=== PATIENT | male | born 1975 | race Caucasian/White ===

== ENCOUNTER → 2020-04-15 11:03 | Outpatient (BNVA) | payer OTHER, SELFPAY | PROVIDERS: PCP Nurse Practitioner Family; Visit Provider Nurse Practitioner Family ==

== ENCOUNTER → 2020-04-21 12:36 | Outpatient (REF) | payer OTHER, SELFPAY | LOC: HO.SL 12:36 | PROVIDERS: Visit Provider Nurse Practitioner Family | DX: G47.9 Sleep disorder, unspecified (principal); R06.83 Snoring | CPT/HCPCS: 95806 ==

== ENCOUNTER → 2020-05-26 19:27 | Outpatient (REF) | payer OTHER, SELFPAY | LOC: HO.SL 19:27 | PROVIDERS: PCP Nurse Practitioner Family; Visit Provider Nurse Practitioner Family | DX: G47.33 Obstructive sleep apnea (adult) (pediatric) (principal); Z99.89 Dependence on other enabling machines and devices | CPT/HCPCS: 95811 ==

== ENCOUNTER → 2020-07-29 08:28 | Outpatient (BNVA) | payer OTHER, SELFPAY | PROVIDERS: PCP Nurse Practitioner Family; Visit Provider Nurse Practitioner Family | DX: G47.33 Obstructive sleep apnea (adult) (pediatric) (principal) | CPT/HCPCS: 99212 ==

== ENCOUNTER 2020-08-28 15:08 | Outpatient (REF) | payer OTHER, SELFPAY ==
--- NOTE | ~2020-08-28 | MR_ITS ---
EXAMINATION: MR KNEE WITHOUT CONTRAST, RIGHT CLINICAL INFORMATION: Right knee pain. COMPARISON: None. TECHNIQUE: MRI of the knee without contrast was performed using routine sequences on a high-field scanner. FINDINGS: MENISCI: Medial Meniscus: Intact. Lateral Meniscus: Intact. LIGAMENTS: Cruciate: Intact. Collateral: Intact. EXTENSOR MECHANISM: Intact. ARTICULAR CARTILAGE/BONE: Patellofemoral Compartment: There is focal cartilage heterogeneity and subchondral cystic change in median ridge of the distal patella. The trochlear cartilage is normal. Overall minimal patellofemoral arthrosis. Medial Compartment: Normal. Lateral Compartment: Normal. JOINT FLUID AND BURSAE: Normal. MR/MR knee RT wo con IMPRESSION: Minimal patellofemoral arthrosis.
== END 2020-08-28 15:09 | disposition home or self-care (01) ==
LOC: HO.MRI 15:08
PROVIDERS: PCP Nurse Practitioner Family; Visit Provider Nurse Practitioner Family
DX: M25.561 Pain in right knee (principal); M25.461 Effusion, right knee
CPT/HCPCS: 73721

== ENCOUNTER → 2020-11-11 09:08 | Outpatient (REF) | payer OTHER, SELFPAY | LOC: HO.SL 09:08 | PROVIDERS: PCP Nurse Practitioner Family; Visit Provider Nurse Practitioner Family | DX: G47.33 Obstructive sleep apnea (adult) (pediatric) (principal) | CPT/HCPCS: 99211 ==

== ENCOUNTER 2021-01-17 13:33 | Outpatient (REF) | payer OTHER, SELFPAY ==
--- NOTE | ~2021-01-17 | XR_ITS ---
EXAMINATION: XR KNEE, RIGHT CLINICAL INFORMATION: Right knee pain COMPARISON: MRI of August 28, 2020 TECHNIQUE: Four views of the right knee. FINDINGS: There is no evidence of acute fracture or dislocation of the right knee. Right knee joint spaces are maintained. No right knee effusion. There is patella spurring the patellofemoral joint. XR/XR knee RT 4V IMPRESSION: Mild degenerative spurring at the patellofemoral joint.
== END 2021-01-17 13:34 | disposition home or self-care (01) ==
LOC: HO.HMGCX 13:33
PROVIDERS: PCP Nurse Practitioner Family; Visit Provider Physician Assistant Medical
DX: M25.561 Pain in right knee (principal)
CPT/HCPCS: 73564

== ENCOUNTER → 2021-02-19 14:22 | Outpatient (BNVA) | payer OTHER, SELFPAY | PROVIDERS: PCP Nurse Practitioner Family; Visit Provider Physician Assistant | DX: M17.11 Unilateral primary osteoarthritis, right knee (principal) | CPT/HCPCS: 99202 ==

== ENCOUNTER 2021-05-06 09:04 | Outpatient (REF) | payer OTHER, SELFPAY ==
--- NOTE | 2021-05-06 09:09 | EMG_ITS ---
This is a 45 year-old man with history of bilateral hand pain and numbness, right greater than left for many years, worse in the last 4 to 6 months. PHYSICAL EXAMINATION: He is alert and oriented with normal intellectual functions. Cranial nerves II through XII are normal. Muscle tone and strength are normal in all 4 extremities. Deep tendon reflexes symmetrical, 2+. Plantar responses are flexor. Gait and coordination normal. Neck is supple. IMPRESSION: Carpal tunnel syndrome. Nerve conduction EMG study: Moderately severe carpal tunnel syndrome on the right and moderate carpal tunnel syndrome on the left. Normal EMG of the right C5-T1 innervated muscles. MD PRESLEY Peng/JOHN / [id number]
== END 2021-05-06 09:05 | disposition home or self-care (01) ==
LOC: HO.NEURO 09:04
PROVIDERS: PCP Nurse Practitioner Family; Visit Provider Nurse Practitioner Family
DX: R20.2 Paresthesia of skin (principal); R20.0 Anesthesia of skin
CPT/HCPCS: 95885; 95913

== ENCOUNTER → 2021-06-03 11:22 | Outpatient (BNVA) | payer OTHER, SELFPAY | PROVIDERS: PCP Nurse Practitioner Family; Visit Provider Orthopaedic Surgery | DX: G56.03 Carpal tunnel syndrome, bilateral upper limbs (principal) | CPT/HCPCS: 99202 ==

== ENCOUNTER 2021-07-16 10:10 | Day surgery (SDC) | payer OTHER, SELFPAY ==
[2021-07-16 10:43] VITALS: BMI 36.6
[2021-07-16 10:48] VITALS: BP 160/98; PULSE 73; RESP 18; TEMP 36.8; O2SAT 96
--- NOTE | 2021-07-16 12:08 | MHC.SHP ---
Pre-Procedural Eval Section A Date of Service: 07/16/21 The patient is an INPATIENT: No Changes since office visit: No Cold of Flu in the past 2 weeks, No New Medical Problems, No Changes in Medication and No Patient answered all questions The History & Physical has been completed within 30 days and I have reviewed it.: Yes Section B Chief Complaint: Carpal tunnel syndrome, left upper limb Allergies: Allergies Allergy/AdvReac Type Severity Reaction Status Date / Time No Known Allergies Allergy Verified 06/03/21 11:46 Plan I have reviewed the history and physical and performed a pertinent physical examination on my patient. No changes have occurred unless specified.
--- NOTE | 2021-07-16 12:08 | W.PM.OPN ---
Operative Note Operative Note Date of Service: 07/16/21 Narrative: Preop diagnosis: 1. left Carpal tunnel syndrome Postop diagnosis: same Procedure: 1. left Carpal tunnel release Surgeon: Sudha Card MD Anesthesia: local block using 1% lidocaine with epinephrine Findings: Thickened transverse carpal ligament. EBL: Less than 5 mL Specimens: None Complications: None Disposition: Brought to recovery room in stable condition Plan: Follow-up for 10-14 days for wound check and suture removal Indications: The patient is 45 years old, with left carpal tunnel syndrome that has been unresponsive to nonoperative management. The risks and benefits of operative treatment including but not limited to risk of damage to blood vessels, nerves, tendons, infection, persistent pain, persistent symptoms, or possible need for additional surgery were discussed with the patient and the patient wishes to proceed with surgery. Procedure: Once consent was obtained a local block was performed using a combination of 1% lidocaine with epinephrine. The patient was then brought back to the operating suite and placed on the operative table in supine position. A tourniquet was applied to the proximal aspect of the left upper extremity and the limb was prepped and draped in a standard surgical fashion. Once assured that we had a good block, a 1.5 cm longitudinal incision was made centered over the carpal tunnel. The incision was made through the skin to the subcutaneous tissues using a #15 blade. Dissection was made down to the level of the transverse carpal ligament with care being taken to protect the palmar cutaneous nerve. Once the transverse carpal ligament was clearly visualized, a longitudinal incision was made in the transverse carpal ligament 1st using a #15 blade, then using tenotomy scissors under direct visualization. Care was taken to look for and protect the motor branch of the median nerve when seen in this area. Once satisfied with our carpal tunnel release the wound was copiously irrigated with normal saline and hemostasis was obtained with a brief period of local pressure. The skin edges were reapproximated with some 5.0 nylon suture material and a sterile dressing was applied. The patient appears to have tolerated the procedure well and with no complications. All digits were well vascularized at the conclusion of the case.
[2021-07-16 13:05] VITALS: BP 160/96; PULSE 71; RESP 16; TEMP 36.1; O2SAT 98
== END 2021-07-16 13:17 | disposition home or self-care (01) ==
PROVIDERS: PCP Nurse Practitioner Family; Visit Provider Orthopaedic Surgery
PROC: (CPT 64721; principal; 2021-07-16 12:40)
DX: G56.02 Carpal tunnel syndrome, left upper limb (principal); R20.0 Anesthesia of skin; I10 Essential (primary) hypertension; G47.33 Obstructive sleep apnea (adult) (pediatric); F32.A Depression, unspecified; Z79.899 Other long term (current) drug therapy; F17.210 Nicotine dependence, cigarettes, uncomplicated
CPT/HCPCS: 64721; J0171

== ENCOUNTER → 2021-07-29 12:38 | Outpatient (BNVA) | payer OTHER, SELFPAY | PROVIDERS: PCP Nurse Practitioner Family; Visit Provider Orthopaedic Surgery | DX: Z48.811 Encounter for surgical aftercare following surgery on the nervous system (principal); G56.01 Carpal tunnel syndrome, right upper limb | CPT/HCPCS: 99212 ==

== ENCOUNTER → 2021-08-12 13:01 | Outpatient (BNVA) | payer OTHER, SELFPAY | PROVIDERS: PCP Nurse Practitioner Family; Visit Provider Nurse Practitioner Family | DX: G47.33 Obstructive sleep apnea (adult) (pediatric) (principal); Z99.89 Dependence on other enabling machines and devices | CPT/HCPCS: 99212 ==

== ENCOUNTER 2021-09-10 10:51 | Day surgery (SDC) | payer OTHER, SELFPAY ==
--- NOTE | 2021-09-10 09:07 | W.PM.OPN ---
Operative Note Operative Note Date of Service: 09/10/21 Narrative: Preop diagnosis: 1. right Carpal tunnel syndrome Postop diagnosis: same Procedure: 1. right Carpal tunnel release Surgeon: Sudha Card MD Anesthesia: local block using 1% lidocaine with epinephrine Findings: Thickened transverse carpal ligament. EBL: Less than 5 mL Specimens: None Complications: None Disposition: Brought to recovery room in stable condition Plan: Follow-up for 10-14 days for wound check and suture removal Indications: The patient is 45 years old, with right carpal tunnel syndrome that has been unresponsive to nonoperative management. The risks and benefits of operative treatment including but not limited to risk of damage to blood vessels, nerves, tendons, infection, persistent pain, persistent symptoms, or possible need for additional surgery were discussed with the patient and the patient wishes to proceed with surgery. Procedure: Once consent was obtained a local block was performed using a combination of 1% lidocaine with epinephrine. The patient was then brought back to the operating suite and placed on the operative table in supine position. A tourniquet was applied to the proximal aspect of the right upper extremity and the limb was prepped and draped in a standard surgical fashion. Once assured that we had a good block, a 1.5 cm longitudinal incision was made centered over the carpal tunnel. The incision was made through the skin to the subcutaneous tissues using a #15 blade. Dissection was made down to the level of the transverse carpal ligament with care being taken to protect the palmar cutaneous nerve. Once the transverse carpal ligament was clearly visualized, a longitudinal incision was made in the transverse carpal ligament 1st using a #15 blade, then using tenotomy scissors under direct visualization. Care was taken to look for and protect the motor branch of the median nerve when seen in this area. Once satisfied with our carpal tunnel release the wound was copiously irrigated with normal saline and hemostasis was obtained with a brief period of local pressure. The skin edges were reapproximated with some 5.0 nylon suture material and a sterile dressing was applied. The patient appears to have tolerated the procedure well and with no complications. All digits were well vascularized at the conclusion of the case.
[2021-09-10 10:59] VITALS: BMI 36.2
[2021-09-10 11:18] VITALS: BP 169/99; PULSE 86; RESP 16; TEMP 36.6; O2SAT 97
[2021-09-10 12:59] VITALS: BP 147/77; PULSE 81; RESP 16; TEMP 36.9; O2SAT 96
--- NOTE | 2021-09-10 13:00 | MHC.SHP ---
Pre-Procedural Eval Section A Date of Service: 09/10/21 The patient is an INPATIENT: No Changes since office visit: No Cold of Flu in the past 2 weeks, No New Medical Problems, No Changes in Medication and No Patient answered all questions The History & Physical has been completed within 30 days and I have reviewed it.: Yes Section B Chief Complaint: CT Allergies: Allergies Allergy/AdvReac Type Severity Reaction Status Date / Time No Known Allergies Allergy Verified 08/12/21 13:08 Plan I have reviewed the history and physical and performed a pertinent physical examination on my patient. No changes have occurred unless specified.
== END 2021-09-10 13:15 | disposition home or self-care (01) ==
PROVIDERS: PCP Nurse Practitioner Family; Visit Provider Orthopaedic Surgery
PROC: (CPT 64721; principal; 2021-09-10 12:10)
DX: G56.01 Carpal tunnel syndrome, right upper limb (principal); I10 Essential (primary) hypertension; G47.30 Sleep apnea, unspecified; F17.200 Nicotine dependence, unspecified, uncomplicated
CPT/HCPCS: 64721; J0171

== ENCOUNTER → 2021-09-24 09:56 | Outpatient (BNVA) | payer OTHER, SELFPAY | PROVIDERS: PCP Nurse Practitioner Family; Visit Provider Physician Assistant | DX: G56.03 Carpal tunnel syndrome, bilateral upper limbs (principal) | CPT/HCPCS: 99212 ==

== ENCOUNTER 2021-10-12 13:20 | Outpatient (REF) | payer OTHER, SELFPAY ==
--- NOTE | ~2021-10-12 | XR_ITS ---
EXAMINATION: XR CERVICAL SPINE CLINICAL INFORMATION: Cervical disc disorder. COMPARISON: None TECHNIQUE: 4 views of the cervical spine were obtained. FINDINGS: No prevertebral soft tissue or bony abnormality is appreciated. No compression fractures or subluxations are identified. Alignment is maintained at the atlanto-axial articulation. The disc spaces appear preserved. No endplate changes are seen. The prevertebral soft tissues appear normal. XR/XR cervical spine 2V IMPRESSION: Unremarkable examination.
== END 2021-10-12 13:21 | disposition home or self-care (01) ==
LOC: HO.HMGCX 13:20
PROVIDERS: PCP Nurse Practitioner Family; Visit Provider Nurse Practitioner Family
DX: M50.90 Cervical disc disorder, unspecified, unspecified cervical region (principal)
CPT/HCPCS: 72040

== ENCOUNTER → 2021-10-14 10:43 | Outpatient (BNVA) | payer OTHER, SELFPAY | PROVIDERS: PCP Nurse Practitioner Family; Visit Provider Physician Assistant | DX: G56.03 Carpal tunnel syndrome, bilateral upper limbs (principal); M25.521 Pain in right elbow; M24.021 Loose body in right elbow | CPT/HCPCS: 99212 ==

== ENCOUNTER 2021-10-14 11:10 | Outpatient (REF) | payer OTHER, SELFPAY ==
--- NOTE | ~2021-10-14 | XR_ITS ---
EXAMINATION: XR ELBOW, RIGHT CLINICAL INFORMATION: Right elbow pain COMPARISON: None TECHNIQUE: AP, lateral, and oblique views of the right elbow. FINDINGS: There is no fracture or dislocation. Alignment is anatomic. Joint spaces are maintained. No elbow joint effusion. There is corticated ossification measuring 1 cm at the dorsal aspect of the elbow adjacent to the olecranon. This may represent an intra-articular body. XR/XR elbow RT min 3V IMPRESSION: Suspect an intra-articular body at the dorsal aspect of the elbow. This is adjacent to the olecranon. No acute abnormality.
== END 2021-10-14 11:11 | disposition home or self-care (01) ==
LOC: HO.HOSX 11:10
PROVIDERS: Visit Provider Physician Assistant
DX: M25.521 Pain in right elbow (principal); M24.021 Loose body in right elbow
CPT/HCPCS: 73080

== ENCOUNTER 2021-11-02 12:49 | Outpatient (REF) | payer OTHER, SELFPAY ==
--- NOTE | ~2021-11-02 | XR_ITS ---
EXAMINATION: XR THORACOLUMBAR SPINE CLINICAL INFORMATION: Dorsalgia COMPARISON: None TECHNIQUE: 2 views FINDINGS: The vertebral alignment is normal. No intrinsic bony abnormality. The disc heights and neural foramina are well maintained. The endplates and posterior elements are normal. No fracture or subluxation. The surrounding prevertebral soft tissues are unremarkable. XR/XR thoracic spine 2V IMPRESSION: No compression fractures or subluxations are identified. The disc spaces are preserved. No endplate changes are seen. The prevertebral soft tissues are normal. The foramina are patent.
--- NOTE | ~2021-11-02 | CT_ITS ---
EXAMINATION: CT ELBOW WITHOUT CONTRAST, RIGHT CLINICAL INFORMATION: Loose body. COMPARISON: Right elbow radiographs dated 10/14/2021. TECHNIQUE: Contiguous axial CT images of the right elbow were obtained without contrast. Multiplanar reformats were provided and reviewed. This CT examination was performed using dose optimization techniques as appropriate, variously including the following: *Automated exposure control. *Adjustment of mA and/or kV according to patient size (this includes techniques or standardized protocols for targeted exams where dose is matched to indication/reason for exam; i.e. extremities or head). *Use of iterative reconstruction technique. DOSE: 128 mGy-cm FINDINGS: No acute fracture or dislocation. Moderate radiocapitellar and ulnotrochlear joint space narrowing with prominent marginal osteophytes. Subchondral cystic change within the capitellum. Multiple corticated ossifications posteriorly adjacent to the olecranon. The largest measures up to 1.9 cm in ML dimension. These appear deep to the triceps tendon and likely represent loose bodies. Additional tiny anterior joint space loose bodies measuring up to 0.2 cm. Trace elbow joint effusion. No abnormal soft tissue mass or fluid collection. The visualized muscles and tendons are grossly intact, however, evaluation is limited on CT examination. 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 Small joint effusion. Multiple ossified loose bodies, most prominent posterior and adjacent to the olecranon measuring up to 1.9 cm.
--- NOTE | ~2021-11-02 | XR_ITS ---
EXAMINATION: XR LUMBOSACRAL SPINE CLINICAL INFORMATION: Back pain. COMPARISON: None TECHNIQUE: Three views of the lumbosacral spine. FINDINGS: The vertebral bodies and posterior elements are normal. The disc spaces are preserved and the vertebral alignment is normal. The paraspinal soft tissues are normal. XR/XR lumbar spine 2-3V IMPRESSION: Unremarkable lumbar spine.
== END 2021-11-02 12:50 | disposition home or self-care (01) ==
LOC: HO.CT 12:49
PROVIDERS: PCP Nurse Practitioner Family; Visit Provider Physician Assistant
DX: M24.021 Loose body in right elbow (principal); G89.29 Other chronic pain; M54.9 Dorsalgia, unspecified
CPT/HCPCS: 72070; 72100; 73200

== ENCOUNTER → 2021-11-04 09:20 | Outpatient (BNVA) | payer OTHER, SELFPAY | PROVIDERS: PCP Nurse Practitioner Family; Visit Provider Orthopaedic Surgery | DX: M24.021 Loose body in right elbow (principal); Z98.890 Other specified postprocedural states | CPT/HCPCS: 99212 ==

== ENCOUNTER → 2021-12-16 09:47 | Outpatient (BNVA) | payer OTHER, SELFPAY | PROVIDERS: PCP Nurse Practitioner Family; Visit Provider Orthopaedic Surgery | DX: Z48.811 Encounter for surgical aftercare following surgery on the nervous system (principal); M24.021 Loose body in right elbow; M19.021 Primary osteoarthritis, right elbow | CPT/HCPCS: 99212 ==

== ENCOUNTER → 2022-02-19 11:28 | Outpatient (BNVA) | payer OTHER, SELFPAY | PROVIDERS: PCP Nurse Practitioner Family; Visit Provider Nurse Practitioner Family | DX: G47.33 Obstructive sleep apnea (adult) (pediatric) (principal); I10 Essential (primary) hypertension; F17.210 Nicotine dependence, cigarettes, uncomplicated; Z99.89 Dependence on other enabling machines and devices | CPT/HCPCS: 99212 ==

== ENCOUNTER 2022-05-17 14:24 | Outpatient (REF) | payer OTHER, SELFPAY ==
[2022-05-17 16:14] LABS: MANUAL DIFF FLAG NO
[2022-05-17 16:19] LABS: Basophils Absolute Auto 0.1 X10*3/uL (0.0-0.2); Basophils Percent Auto 0.8 % (0-2); Eosinophils Absolute Auto 0.1 X10*3/uL (0.0-0.4); Eosinophils Percent Auto 1.2 % (0-4); Hematocrit 52.3 % (42.0-52.0); Hemoglobin 18.2 g/dl (14.0-18.0); Imm Gran Abs Auto 0.02 X10*3/uL (0.00-0.03); Imm Gran Pct Auto 0.3 % (0.0-0.4); Lymphocytes Absolute Auto 2.2 X10*3/uL (1.2-4.9); Lymphocytes Percent Auto 37.4 % (20-40); Mean Corpuscular HGB Conc 34.8 g/dl (31.0-36.0); Mean Corpuscular Hemoglobin 29.2 pg (27.0-33.0); Mean Corpuscular Volume 83.8 fL (80.0-98.0); Mean Platelet Volume 10.1 fL (9.4-12.4); Monocytes Absolute Auto 0.5 X10*3/uL (0.1-1.2); Monocytes Percent Auto 9.1 % (2-11); NRBC Pct Auto 0.3 /100WBC (0.0-0.2); Neutrophils Absolute Auto 3.1 x10*3/uL (2.0-8.3); Neutrophils Percent Auto 51.2 % (45-73); Platelet Count 157 X10*3/uL (160-400); Red Blood Count 6.24 X10*6/uL (4.60-5.80); Red Cell Distribution Width 12.6 % (11.0-16.0)
[2022-05-17 16:28] LABS: Appearance Urine Clear; Color Urine Yellow; Glucose Urine UA Negative (Negative); Leukocyte Esterase Urine Negative (Negative); Nitrite Urine Negative (Negative); Specific Gravity - Urine <= 1.005 (1.005-1.025); Urine Blood Negative (Negative); Urine Ketones Negative (Negative); Urine Protein Negative (Neg-Trace)
[2022-05-17 16:51] LABS: TSH reflex Free T4 1.67 uIU/mL (0.32-4.0)
[2022-05-17 16:57] LABS: Alanine Aminotransferase 50 U/L (0-40); Albumin Level 4.6 g/dL (3.5-5.0); Alkaline Phosphatase 86 U/L (39-117); Anion Gap 17 (12-20); Aspartate Amino Transferase 38 U/L (5-37); Blood Urea Nitrogen 11 mg/dL (9-16); Calcium 9.5 mg/dL (8.4-10.2); Carbon Dioxide 23 mmol/L (22-29); Chloride 102 mmol/L (96-108); Cholesterol 199 mg/dL; Estimated Glomerular Filt Rate > 60; Glucose Fasting 90 mg/dL (60-99); HDL Cholesterol 38 mg/dL; LDL Cholesterol Calculated 119 mg/dl; Potassium 4.5 mmol/L (3.3-5.1); Sodium 137 mmol/L (135-145); Total Protein 7.8 g/dL (6.5-8.0); Triglycerides 212 mg/dL
== END 2022-05-17 14:25 | disposition home or self-care (01) ==
LOC: HO.HMGCLDS 14:24
PROVIDERS: PCP Nurse Practitioner Family; Visit Provider Nurse Practitioner Family
DX: F32.9 Major depressive disorder, single episode, unspecified (principal); F43.10 Post-traumatic stress disorder, unspecified; F41.9 Anxiety disorder, unspecified; E78.5 Hyperlipidemia, unspecified
CPT/HCPCS: 36415; 80053; 80061; 81003; 84443; 85025

== ENCOUNTER 2022-06-10 08:27 | Outpatient (REF) | payer OTHER, SELFPAY ==
--- NOTE | ~2022-06-10 | US_ITS ---
EXAMINATION: US ABDOMEN COMPLETE CLINICAL INFORMATION: Unspecified jaundice. Abnormal LFTs. COMPARISON: None available. TECHNIQUE: Real-time imaging of the abdominal viscera. FINDINGS: PANCREAS: Normal. ABDOMINAL AORTA: The proximal, mid, and distal segments are normal in caliber. INFERIOR VENA CAVA: Visualized portions are normal. LIVER: The liver is normal in size. The liver contour is normal. There is diffuse increased liver parenchymal echogenicity, consistent with hepatic steatosis. There is fatty sparing adjacent to the gallbladder. No focal hepatic lesion. There is no intrahepatic biliary duct dilatation seen. GALLBLADDER: Normal. The gallbladder is physiologically distended without evidence of stones, sludge, polyps, wall thickening or pericholecystic fluid. COMMON BILE DUCT: Normal in caliber measuring 0.2 cm in diameter. RIGHT KIDNEY: Normal. No hydronephrosis. No renal calculi or focal parenchymal lesions. The kidney measures 13.3 cm in maximum dimension. LEFT KIDNEY: Normal. No hydronephrosis. No renal calculi or focal parenchymal lesions. The kidney measures 12.5 cm in maximum dimension. SPLEEN: Normal. The spleen measures 12.5 cm in maximum dimension. FREE FLUID: None. US/US abdomen complete IMPRESSION: Hepatic steatosis. No evidence of biliary obstruction.
== END 2022-06-10 08:28 | disposition home or self-care (01) ==
LOC: HO.US 08:27
PROVIDERS: PCP Nurse Practitioner Family; Visit Provider Nurse Practitioner Family
DX: R17 Unspecified jaundice (principal); R74.8 Abnormal levels of other serum enzymes
CPT/HCPCS: 76700

== ENCOUNTER → 2022-06-29 13:40 | Outpatient (BNVA) | payer OTHER, SELFPAY | PROVIDERS: PCP Nurse Practitioner Family; Visit Provider Physician Assistant | DX: M51.36 Other intervertebral disc degeneration, lumbar region (principal) | CPT/HCPCS: 99202 ==

== ENCOUNTER 2022-10-27 08:57 | Outpatient (AMB) | payer OTHER, SELFPAY ==
[2022-10-27 09:13] VITALS: BP 110/72; PULSE 57; O2SAT 98; BMI 36.6
--- NOTE | 2022-10-27 09:13 | MHC.PC.OV ---
Vital Signs 10/27/22 09:13 Height 5 ft 11 in Weight 262 lb 6 oz BMI 36.6 BP 110/72 Blood Pressure Location Rt brachial Position Sitting Pulse 57 Pulse Source Pulse Oximeter Pulse Oximetry (%) 98 Oxygen Delivery Method Room Air Intake Visit Reasons: 3m follow up depression Allergies No Known Allergies Allergy (Verified 10/27/22 09:15) Tobacco use date assessed: 10/27/22 Dental Screening Dental Screen Date: 10/27/22 Did you have a dental visit in the last 12 months?: Yes Did you have a dental problem in the last 6 months where you did not have access to dental care?: No Was dental information given to patient?: Patient has dentist HPI 3m follow up depression HPI Details Anxiety/depression: Pt is currently taking bupropion 450mg and escitalopram 10mg. He reports doing well. 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 Denies any SI and HI. Headaches to forehead, described as brain freeze , especially when his CPAP is not fitting correct on his face. Does not last long, will cont to monitor. No blurred vision, dizziness, n/v. Pt is currently using Testosterone supplements. 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 Moncho Serrano, Ana Gallagher, Justyn Govea and colleagues, with an educational bryson from [employer]. Review of Systems Const Reports as per HPI Physical exam (Primary Care) Vital Signs: Last Vital Signs Pulse 57 10/27/22 09:13 BP 110/72 10/27/22 09:13 Pulse Ox 98 10/27/22 09:13 Oxygen Delivery Method Room Air 10/27/22 09:13 BMI result Body Mass Index 36.6 Tobacco/Smoking Status: Tobacco use Status Tobacco use date assessed 10/27/22 10/27/22 09:19 Patient Tobacco Use Status Former Tobacco user 10/27/22 09:19 e-Cigarette/Vaping Use Never Used 10/27/22 09:19 Thrive Assessment: Date of Thrive Assessment Date Thrive assessed 11/25/21 10/27/22 09:19 Const General: cooperative Orientation/consciousness: patient oriented x3 Resp Effort & Inspection: normal respiratory effort Auscultation: clear to auscultation bilaterally Cardio Rate: regular rate Rhythm: regular rhythm Heart sounds: S1 normal heart sound present, S2 normal heart sound present and no murmurs Neuro Other: cn2-12 intact General: patient oriented x3 Extrem Other: no edema Psych Appearance: grossly normal Mental Status: mental status grossly normal Speech and movement: Normal speech and movement present Affect: normal affect Attitude: cooperative Thought process: Normal thought process present Thought content: Normal thought content present Insight: Good insight present (Psych) Judgement: Good judgement present (Psych) Assessment and Plan Assessment & Plan (1) Migraines: Code(s): G43.909 - Migraine, unspecified, not intractable, without status migrainosus (2) Severe obstructive sleep apnea: Comment: HST (04/22/20): AHI 78.4/hr, O2 farideh 67%. CPAP supplier: [facility]. Code(s): G47.33 - Obstructive sleep apnea (adult) (pediatric) (3) Depression: Code(s): F32.9 - Major depressive disorder, single episode, unspecified (4) Anxiety: Code(s): F41.9 - Anxiety disorder, unspecified Plan The patient agreed to the use of a medical records director for this encounter. Scribed for SEAN Multani by Judith Saul medical records director, on 10/27/2022 at 09:25 EST. Coding Level of Care Code Est Pt Level 3 (85827) Diagnoses Migraines G43.909 Severe obstructive sleep apnea G47.33 Depression F32.9 Anxiety F41.9
== END 2022-10-27 10:04 | disposition home or self-care (01) ==
PROVIDERS: PCP Nurse Practitioner Family; Visit Provider Nurse Practitioner Family
DX: G43.909 Migraine, unspecified, not intractable, without status migrainosus (principal); G47.33 Obstructive sleep apnea (adult) (pediatric); F32.9 Major depressive disorder, single episode, unspecified; F41.9 Anxiety disorder, unspecified
CPT/HCPCS: 99213

== ENCOUNTER 2024-01-17 09:57 | Outpatient (AMB) | payer OTHER, SELFPAY ==
[2024-01-17 10:01] VITALS: BP 142/94; PULSE 73; O2SAT 98; BMI 33.7
--- NOTE | 2024-01-17 10:01 | A.OFFVIS_ITS ---
Vital Signs 01/17/24 10:01 Height 5 ft 11 in Weight 242 lb BMI 33.7 BP 142/94 H Blood Pressure Location Rt brachial Position Sitting Pulse 73 Pulse Source Pulse Oximeter Pulse Oximetry (%) 98 Oxygen Delivery Method Room Air Intake Visit Reasons: f/u for sleep Intake Note: Patient presents for follow up JAQUELINE. Allergies No Known Allergies Allergy (Verified 01/17/24 10:02) HPI Comments Details: 46 y/o male patient presents for follow up of JAQUELINE on CPAP. CPAP compliance report (10/19/23-01/17/24) reviewed with the patient . Pt is on CPAP [id number]. Usage days 53 days, >=4 hours 59%. Average usage is 4 hours and 35 min . AHI was 2.3 and median leaks 105.4 L/min.. Pt reports that he is not sleeping well, goes to bed at 10pm gets up at 3am and tries to fall asleep. Takes trazodone 400mg PRN and falls asleep. He wakes up refreshed when he uses the CPAP. He is more forgetful and has brain fog with excessive daytime sleepiness when he does not use CPAP at night. He has lost 30 pounds, changed eating habits, goes to the gym 2-3 times per week. Has had difficulty with receiving supplies from [employer] so would like to try [facility], as he continues to pay for supplies out of pocket. His mask leaks and does not fit, thinks it d/t weight loss. . Mask leaks and is difficult to use all night, pressures are okay. He cleans mask changes filter and fills water reservoir as needed. 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 anxiety, is worse automatically responds to trauma, vigilant d/t noises and sounds. His acid reflux is better controlled with Protonix. BP 142/94, will monitor has not taken his Lisinopril this AM. 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 [employer] Current occupational exposures/hazards: Yes Cognitive needs: No Hearing needs: No Vision needs: No Review of Systems Const All systems reviewed & are unremarkable except as noted in HPI and below Neuro Reports Abnormal speech present Physical Exam Vital Signs: Last Vital Signs Pulse 73 01/17/24 10:01 BP 142/94 H 01/17/24 10:01 Pulse Ox 98 01/17/24 10:01 Oxygen Delivery Method Room Air 01/17/24 10:01 BMI result Body Mass Index 33.7 Const General: cooperative, healthy appearing and no acute distress Nutritional Appearance: average body habitus and obese Orientation/consciousness: patient oriented x3 Eyes Pupils: Equal, round and reactive pupils present Resp Effort & Inspection: normal respiratory effort and able to speak in complete sentences Neuro General: patient oriented x3 Cranial nerves: Yes CN's II-XII intact bilaterally, Yes Facial sensation intact/muscles of mastication intact, Yes Equal, round and reactive pupils present, Yes Normal accommodation reflex present, Yes Bilaterally intact EOM present, Yes Nystagmus not present, Yes Normal facial strength present, Yes Midline tongue present, Yes Symmetric palate elevation present, Yes Ability to bilaterally rotate head present and Yes Ability to bilaterally elevate shoulders present Speech: Abnormal speech present Gait exam (Neuro): Normal gait present Motor exam (neuro): 5/5 motor strength present throughout and Normal motor muscle tone present throughout Deep tendon reflexes (DTR's): Right triceps reflex intensity grade: 2+, Left triceps reflex intensity grade: 2+, Rt Biceps (C5, C6): 2+, Left biceps reflex intensity grade: 2+, Right brachioradialis reflex intensity grade: 2+, Left brachioradialis reflex intensity grade: 2+, Right patellar reflex intensity grade: 2+ and Left patellar reflex intensity grade: 2+ Coordination: [id number] test normal Results Reviewed Results Reviewed: CPAP compliance report (10/19/23-01/17/24) reviewed with the patient . Pt is on CPAP [id number]. Usage days 53 days, >=4 hours 59%. Average usage is 4 hours and 35 min . AHI was 2.3 and median leaks 105.4 L/min. Assessment & Plan Assessment & Plan (1) Anxiety: Code(s): F41.9 - Anxiety disorder, unspecified Category: Medical (2) Snoring: Code(s): R06.83 - Snoring Category: Medical (3) Severe obstructive sleep apnea: Comment: HST (04/22/20): AHI 78.4/hr, O2 farideh 67%. CPAP supplier: [facility], will change him to [facility] Code(s): G47.33 - Obstructive sleep apnea (adult) (pediatric) Category: Medical Plan Patient is advised to undergo Mask fitting with [facility] and stop purchasing supplies from suppliers until a good mask has been identified and he has exhausted all possible solutions for an appropriate mask, that doesn't leak. Sleep Hygiene provided, limit fluids 4 hours prior to bed. Limit caffeine to one beverage a day. Wash mask daily, change filters, fill reservoir with distilled water, adjust humidification as needed. BMI is 33, and has lost 20lbs, encouraged patient to engage in continuous exercise for weight reduction and monitor caloric intake. Chamber Magistrate/Center Machine Operator referral is available if interested in dietary caloric intake and meal planning. DASH Diet for Hypertension, per [place] [employer] #1 modifiable risk factor to prevent heart attacks is blood pressure control. Refer to: www.https//mydash.diet Mediterranean Diet- Cardiovascular Risk reduction, weight loss, and control Type 2 diabetes mellitus. Follow up in 6 months, please call or message us on the portal with concerns. Coding Level of Care Code Est Pt Level 3 (27416) Diagnoses Anxiety F41.9 Snoring R06.83 Severe obstructive sleep apnea G47.33
== END 2024-01-17 10:49 | disposition home or self-care (01) ==
PROVIDERS: PCP Nurse Practitioner Family; Visit Provider Physician Assistant Medical
DX: G47.33 Obstructive sleep apnea (adult) (pediatric) (principal); R06.83 Snoring; F41.9 Anxiety disorder, unspecified
CPT/HCPCS: 99213

== ENCOUNTER → 2024-01-17 09:57 | Outpatient (BNVA) | payer OTHER, SELFPAY | PROVIDERS: PCP Nurse Practitioner Family; Visit Provider Physician Assistant Medical ==

== ENCOUNTER 2024-02-06 14:59 | Outpatient (AMB) | payer OTHER, SELFPAY ==
[2024-02-06 15:00] VITALS: BP 132/80; PULSE 78; O2SAT 98; BMI 33.7
--- NOTE | 2024-02-06 15:00 | MHC.PC.OV ---
Vital Signs 02/06/24 15:00 Height 5 ft 11 in Weight 242 lb BMI 33.7 BP 132/80 Blood Pressure Location Lt brachial Position Sitting Pulse 78 Pulse Source Pulse Oximeter Pulse Oximetry (%) 98 Intake Visit Reasons: weight loss options [employer] Required: No Allergies No Known Allergies Allergy (Verified 02/06/24 15:01) Medication List - Last Reconciled 02/06/24 by WILBUR Castellanos- bupropion HCl XL 300 mg PO QAM bupropion HCl XL 150 mg PO QAM escitalopram oxalate 10 mg PO DAILY 90 days lisinopril 40 mg PO DAILY trazodone 100 mg (2 x 50 mg) PO BEDTIME Tobacco use date assessed: 02/06/24 Dental Screening Dental Screen Date: 02/06/24 Did you have a dental visit in the last 12 months?: Yes Did you have a dental problem in the last 6 months where you did not have access to dental care?: No Was dental information given to patient?: Patient has dentist HPI weight loss options HPI Details Chief Complaint Follow-up hypertension management History of Present Illness The patient is a 48-year-old male presenting with a follow-up for management of essential hypertension. He denies experiencing associated symptoms such as shortness of breath, chest pain, headaches, visual disturbances, nausea, vomiting, fevers, chills, or edema. The patient's blood pressure has remained stable, as noted during previous evaluations. He additionally reports a recent episode of increased GERD symptoms following consumption at a fast-food establishment, which has since resolved. An evaluation at a walk-in clinic included an abdominal ultrasound and an electrocardiogram to rule out myocardial infarction, both of which were negative. He was treated with Carafate, which provided significant relief from the GERD symptoms, which are no longer present. Social History Health Maintenance Review of Systems - Cardiovascular: Denies chest pain, edema. - Respiratory: Denies shortness of breath. - Neurological: Denies headaches. - Gastrointestinal: Denies nausea, vomiting. - General: Denies fevers, chills. Physical Exam General: Cooperative, healthy appearing, comfortable, no acute distress and well developed Orientation: Patient oriented x3 Limitations: No limitations Head: Normal to inspection Ears: Hearing grossly normal bilaterally Nose: Normal external nose present Face and sinus: Normal facial exam Eyes: Appearance normal, both eyes and all related structures Neck: Normal visual inspection and Yes full ROM Respiratory: Normal respiratory effort and able to speak in complete sentences. Clear to auscultation bilaterally Cardiovascular: Regular rate and rhythm. Normal S1 and S2 GI: Normal to inspection. Soft to palpation and nontender Skin: No rashes or lesions noted Neuro: Patient oriented x3 Extremities: Normal to inspection Results Plan - Conduct laboratory tests for further management of hypertension. - Schedule a follow-up appointment to review lab results and ongoing hypertension management. Patient was informed and verbally consented to the use of an ambient scribe for clinic note documentation during this visit. Discussion Notes I discussed with the patient the importance of ongoing management for hypertension. We reviewed that his blood pressure remains stable and emphasized adhering to his management plan. There was a detailed discussion about the previous GERD episode and the treatments that alleviated his symptoms. I indicated the use of Carafate had relieved symptoms. He was advised to monitor his symptoms and dietary habits, particularly regarding foods that might exacerbate GERD. We also discussed the results of the recent abdominal ultrasound and EKG performed at a walk-in clinic, which were reassuring and ruled out myocardial infarction. Patient Instructions - Monitor blood pressure regularly and maintain a log. - Continue current hypertension management regimen and report any new symptoms. - Avoid foods known to exacerbate GERD symptoms. - Follow up after labs are completed to discuss blood pressure management. 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 16673 - PHQ-9 Billing: Patient declined-do not bill Source: Developed by Drs. Moncho Serrano, Ana Gallagher, Justyn Govea and colleagues, with an educational bryson from [employer] Thrive Questionnaire Date Thrive assessed: 02/06/24 I am a: Patient What is your living situation today?: I have a steady place to live Within the past 12 months, did the food you bought not last and you didn't have the money to get more?: Never true Within the past 12 months, did you worry whether your food would run out before you got money to buy more?: Never true Do you have trouble paying for medicines?: No Do you have trouble getting transportation to medical appointments?: No Do you have trouble paying your heating and electricity bill?: No Do you have trouble taking care of your child, family member or friend?: No Do you have trouble with day-to-day activities such as bathing, preparing meals, shopping, managing finances, etc.?: I choose not to answer this question Are you currently unemployed and looking for a job?: Yes Are you interested in more education?: Yes Please select the resources that you would like help with: None Currently or been in a relationship where the following occur: No concerns reported THRIVE Score: 0 AUDIT C Alcohol Use Questionnaire (AUDIT-C) 1. How often do you have a drink containing alcohol?: Never 2. How many drinks containing alcohol do you have on a typical day when you are drinking?: 1 or 2 3. How often do you have six or more drinks on one occasion?: Never Total Score: 0 Score Reviewed/Action Taken: Yes EMETERIO-7 AMB Questionnaire EMETERIO-7 Date EMETERIO - 7 assessed: 02/06/24 Feeling nervous, anxious, or on edge: 2 = More than half the days Not being able to stop or control worryin = More than half the days Worrying too much about different things: 1 = Several days Trouble relaxin = Several days Being so restless that it is hard to sit still: 1 = Several days Becoming easily annoyed or irritable: 1 = Several days Feeling afraid as if something awful might happen: 1 = Several days Total EMETERIO-7 score (0-4 normal; 5-9 mild; 10-14 moderate; 15-21 severe): 9 Source: Developed by Drs. Moncho Serrano, Ana Gallagher, Justyn Govea and colleagues, with an educational bryson from [employer] EMETERIO-7 Assessment Billing EMETERIO-7 Assessment Tool: EMETERIO-7 Assessment 56190 Physical exam (Primary Care) Vital Signs: Last Vital Signs Pulse 78 02/06/24 15:00 BP 132/80 02/06/24 15:00 Pulse Ox 98 02/06/24 15:00 BMI result Body Mass Index 33.7 Tobacco/Smoking Status: Tobacco use Status Tobacco use date assessed 02/06/24 02/06/24 15:01 Patient Tobacco Use Status Former Tobacco user 02/06/24 15:01 e-Cigarette/Vaping Use Never Used 02/06/24 15:01 Thrive Assessment: Date of Thrive Assessment Date Thrive assessed 02/06/24 02/06/24 15:01 Currently or been in a relationship where the following occur: No concerns reported Coding Level of Care Code Est Pt Level 3 (44166) Diagnoses HTN (hypertension) I10 Screening for prostate cancer Z12.5 Additional Codes EMETERIO-7 Assessment Billing - EMETERIO-7 Assessment Tool: EMETERIO-7 Assessment 66015 ([id number]) Assessment & Plan Assessment & Plan (1) HTN (hypertension): Code(s): I10 - Essential (primary) hypertension Category: Medical (2) Screening for prostate cancer: Code(s): Z12.5 - Encounter for screening for malignant neoplasm of prostate Category: Medical Plan . Orders: Orders Comprehensive [place]. Panel Fast Today I10 - Essential (primary) hypertension TSH reflex Free T4 Today I10 - Essential (primary) hypertension UA CC w/rflx Micro + Cult Today I10 - Essential (primary) hypertension Complete Blood Count Auto Diff Today I10 - Essential (primary) hypertension Lipid Panel Today I10 - Essential (primary) hypertension Prostate Specific Antigen Scr Today Z12.5 - Encounter for screening for malignant neoplasm of prostate Medications: Refilled lisinopril 40 mg PO DAILY 90 tabs 1RF
--- OUTSIDE RECORDS SUMMARY | 2024-02-06 15:00 | XMS_ITS ---
Author Organization [facility] Address [address] [place] [address] Care Team Providers Care Explosive Operator Bomb Name Role Phone Tolu Claros Primary Care Provider Unav ailable Garrison Vargas Unavailable [phone] REASON FOR VISIT Last Visit PCP 04/2022 Encounters Encounter Location Date Provider Diagnosis [facility] [address] [place] [address] 09/30/2022 Garrison Vargas Plantar fascial fibromatosis M72.2 ; Calcaneal spur, left foot M77.32 ; Calcaneal spur, right foot M77.31 ; Pain in left foot M79.672 ; Pain in right foot M79.671 ; Achilles tendinitis, left leg M76.62 and Achilles tendinitis, right leg M76.61 Assessments Encounter Date Diagnosis (ICD Code) Assessment Notes Treatment Notes Treatment Clinical Notes Section Notes 09/30/2022 Plantar fascial fibromatosis (ICD-10 - M72.2) 09/30/2022 Calcaneal spur, left foot (ICD-10 - M77.32) 09/30/2022 Calcaneal spur, right foot (ICD-10 - M77.31) 09/30/2022 Pain in left foot (ICD-10 - M79.672) 09/30/2022 Pain in right foot (ICD-10 - M79.671) 09/30/2022 Achilles tendinitis, left leg (ICD-10 - M76.62) 09/30/2022 Achilles tendinitis, right leg (ICD-10 - M76.61) Plan Of Treatment Next Appt Details Follow Up: prn, Reason: Progress Notes * Logan BOGGS JDOB:[birth year] (48 yo M)Acc No.[id number]:09/30/2022 Progress Note Patient:?Joesph BOGGS Provider:?Garrison Vargas DPM :1975???Age:46 Y???Sex:Male Donta e:09/30/2022 Address:[address] [place], [place] [id number] Pcp:KAYLAH Multani Subjective: * Chief Complaints: * ???1. Last Visit PCP 04/2022 . * HPI: ???Heel pain:?Nature:?sharp pain, aching.?Location:?Proximal plantar aspect of Heel, B/L, Back of heel, B/L.?Duration:?a year .?Onset/Cause:?unknown.?Course:?improved.?Aggravated:?walking first thing in the morning/after rest.?Treatments:?change in shoes, innersoles/orthotics, stretching, massage, custom OT, AFO-nightsplint; pt has been very compliant with custom orthoses and proper shoes.?Severity/Quality:?considered 2 out of 10.?Misc:?pt had recent mri and it displayed herniated disc in lb.? * ROS:?General/Constitutional:?Nausea?denies.?Vomiting?denies.?Hunger Thirst?denies.?Loss appetite?denies.?Chills?denies.?Fatigue?denies.?Fever?denies.?Night Sweats?denies.?Unexplained weight loss?denies.?Unexplained weight gain?denies.?HEENTM:?Dentures?denies.?Dizziness?denies.?Glasses/contacts?denies.?Retinopathy?de nies.?Blurred/double vision?denies.?TMJ?denies.?Discharge/drainage?denies.?Implants?denies.?Sore throat?denies.?Dental implants?denies.?Hard of hearing ?admits.?Difficulty chewing/swallowing/speaking?denies.?Nose bleeds?denies.?Sore mouth?denies.?Respiratory:?On Oxygen?denies.?Pneumonia/pleurisy?denies.?Bronchitis?denies.?Emphysema?denies.?C oughing?denies.?Cough blood?denies.?Shortness of breath?denies.?Wheezing?denies.?Cardiovascular:?Pacemaker?denies.?MVP?denies.?WPW?denies.?CHF?denies.?Heart attack?denies.?Septal defect?denies.?Rapid beat?denies.?Chest pain ?denies.?Atrial Fib.?denies.?Murmur/Palpitations?denies.?Gastrointestinal:?Hemorrhoids?denies.?Stomach/Abdominal pain?denies.?Dark blood stool?denies.?Irritable bowel ?denies.?Constipation?denies.?Diarrhea?denies.?Hematology:?Swelling?denies.?Clots?denies.?Varicose Veins?denies.?Bruising?denies.?Bleeding problem?denies.?Genitourinary:?Blood urine?denies.?Frequent/Painfu/urination/bladder control?denies.?Kidney stones?denies.?Infection (UTI)?denies.?Nephropathy?denies.?sex trans dis (STD)?denies.?Prostate?denies.?Musculoskeletal:?Hammertoes?denies.?Bunions?denies.?Back Pain?admits.?Muscle Cramps/ Resting?denies.?Muscle cramps / walking?denies.?Generalized aches and pains?denies.?Weakness?denies.?Integ.:?Mcdaniel?denies.?Scars?denies.?Corns/calluses?denies.?Ingrown nails?denies.?Painful nails?denies.?Open Sores?denies.?Rashes?denies.?Neurologic:?Difficulty sleeping?admits.?Brain disorder?denies.?Numbness?denies.?Balance trouble?denies.?Confusion?denies.?Fainting/blackouts?denies.?Tingling?denies.?Tr emors?denies.? * Medical History:? Objective: * Vitals:? * Examination: ???General Examination: ?GENERAL APPEARANCE:?pleasant, alert, well nourished, well developed, well hydrated, with good attention to hygene/body habitus, and in no acute distress.?ORIENTED:?person,place, and time.?Neurological: ?SENSORY:?Neurological exam reveals intact sensorium, pain sensation normal, vibration sensation intact, pinprick sensation is normal in the lower extremities, pt denies, anesthesia, burning, paresthesia, tingling, B/L.?TINEL'S COMPRESSION:?Negative tarsal tunnel, mj pedis, and medial calcaneal nerves, B/L.?BABINSKI REFLEX:?Absent, B/L.?Vascular: ?DP PULSES (B):?2/4, B/L.?PT PULSES (B):?2/4, B/L.?CAPILLARY FILL TIME:?3 secs. per digit, B/L.?TROPHIC CONDITION-TEXTURE/ELASTICITY/TURGOR/HAIR GROWTH (B):?normal, B/L.?TEMPERTURE GRADIENT (C):?warm to cool, proximal to distal, B/L.?EDEMA (C):?no edema.?Dermatologic: ?SKIN FINDINGS:? Skin exam reveals Keratotic lesion(s) located at, Heel(s), B/L .?Heel Pain: ?INSPECTION REVEALS:?Pain on Palpation to Plantar Fascia med. and central bands, intrinsic musc., infracalcaneal bursa, and med calc tubercle , B/L, mild pop plm right heel and no pop left.?Orthopedic: ?MUSCLE STRENGTH:?5/5 all groups in a symmetrical fashion B/L.?GAIT ABNORMALITY:?pronated, abducted, B/L.? Assessment: * Assessment: 1.?Plantar fascial fibromato sis - M72.2 (Primary)???2.?Calcaneal spur, left foot - M77.32???3.?Calcaneal spur, right foot - M77.31???4.?Pain in left foot - M79.672???5.?Pain in right foot - M79.671???6.?Achilles tendinitis, left leg - M76.62???7.?Achilles tendinitis, right leg - M76.61??? Plan: * Treatment: * Follow Up:?prn * Images: * The named appointment provid er may or may not be the originator of this progress note, and it is not deemed complete until electronically signed by the appointment provider. Sign off status: Pending * Provider:?Garrison Vargas DPM Date:? 023 Generated for Umberto turpin/Aman/Francineitting on:?02/06/2024 03:00 PM EST History and Physical Notes * HPI (History of Present Illness) Category Sub-Category Detail Notes Category Not es Heel pain Duration: a year Nature: sharp pain, aching Severity/Quality: considered 2 out of 10 Location: Proximal plantar asp ect of Heel, B/L, Back of heel, B/L Onset/Cause: unknown Aggravated: walking first thing in the morning/after rest Course: improved Treatments: change in shoes, inn ersoles/orthotics, stretching, massage, custom OT, AFO-nightsplint; pt has been very compliant with custom orthoses and proper shoes Misc: pt had recent mri an d it displayed herniated disc in lb Examination Category Sub-Category Detail Notes Category Not es Heel Pain INSPECTION REVEALS: Pain on Palp ation to Plantar Fascia med. and central bands, intrinsic musc., infracalcaneal bursa, and med calc tubercle , B/L, mild pop plm right heel and no pop left Neurological SENSORY: Neurological exa m reveals intact sensorium, pain sensation normal, vibration sensation intact, pinprick sensation is normal in the lower extremities, pt denies, anesthesia, burning, paresthesia, tingling, B/L BABINSKI REFLEX: Absent, B/L TINEL'S COMPRESSION: Negative tarsal priscilla armando, mj pedis, and medial calcaneal nerves, B/L Dermatologic SKIN FINDINGS: Skin exam reveal s Keratotic lesion(s) located at, Heel(s), B/L Orthopedic GAIT ABNORMALITY: pronated, abducted, B/L MUSCLE STRENGTH: 5/5 all groups in a symmetrical fashion B/L General Examination GENERAL APPEARANCE: pleasant , alert, well nourished, well developed, well hydrated, with good attention to hygene/body habitus, and in no acute distress ORIENTED: person,place, and ti me Vascular DP PULSES (B): 2/4, B/L PT PULSES (B): 2/4, B/L CAPILLARY FILL TIME: 3 secs. per digit, B/L TEMPERTURE GRADIENT (C): warm to cool, p roximal to distal, B/L TROPHIC CONDITION-TEXTURE/ELASTICITY/TURGOR/HAIR GROWTH (B): normal, B/L EDEMA (C): no edema
--- OUTSIDE RECORDS SUMMARY | 2024-02-06 15:00 | XMS_ITS ---
Author Organization [facility] Address [address] [place] [address] Care Team Providers Care Velvet Cutter Name Role Phone Tolu Claros Primary Care Provider Unav ailable Garrison Vargas Unavailable [phone] REASON FOR VISIT Last Visit PCP 04/2022 Encounters Encounter Location Date Provider Diagnosis [facility] [address] [place] [address] 10/07/2022 Garrisno Vargas Plantar fascial fibromatosis M72.2 ; Calcaneal spur, left foot M77.32 ; Calcaneal spur, right foot M77.31 ; Pain in left foot M79.672 ; Pain in right foot M79.671 ; Achilles tendinitis, left leg M76.62 and Achilles tendinitis, right leg M76.61 Assessments Encounter Date Diagnosis (ICD Code) Assessment Notes Treatment Notes Treatment Clinical Notes Section Notes 10/07/2022 Plantar fascial fibromatosis (ICD-10 - M72.2) 10/07/2022 Calcaneal spur, left foot (ICD-10 - M77.32) 10/07/2022 Calcaneal spur, right foot (ICD-10 - M77.31) 10/07/2022 Pain in left foot (ICD-10 - M79.672) 10/07/2022 Pain in right foot (ICD-10 - M79.671) 10/07/2022 Achilles tendinitis, left leg (ICD-10 - M76.62) 10/07/2022 Achilles tendinitis, right leg (ICD-10 - M76.61) Plan Of Treatment Next Appt Details Follow Up: prn, Reason: Progress Notes * Logan BOGGS JDOB:1 (48 yo M)Acc No.[id number]:10/07/2022 Progress Note Patient:?Joesph BOGGS Provider:?Garrison Vargas DPM :1975???Age:46 Y???Sex:Male Donta e:10/07/2022 Address:[address] [place], [place] [id number] Pcp:KAYLAH Multani Subjective: * Chief Complaints: * [...]
--- OUTSIDE RECORDS SUMMARY | 2024-02-06 15:00 | XMS_ITS ---
Author Organization [facility] Address [address] [place] [address] Care Team Providers Care Network Internship Name Role Phone Tolu Claros Primary Care Provider Unav ailable Garrison Vargas [phone] REASON FOR VISIT Cancel Encounters Encounter Location Date Provider Diagnosis [facility] [address] [place] [address] 10/06/2022 Garrison Vargas Plan Of Treatment No Information Progress Notes * Logan SARAVIADOB:1 (46 yo M)Acc No.[id number]:10/06/2022 Patient:?Joesph Saravia :1975???Age:46 Y???Sex:Male Address:[address] [place] [address], [id number] * true * Date:? Generated for Tatianai papi/Aman/eTransmitting on:?02/06/2024 03:00 PM EST
--- OUTSIDE RECORDS SUMMARY | 2024-02-06 15:00 | XMS_ITS | Continuity of Care Document ---
Author Name [facility] Organization [facility] Care Team Providers Care Associate Manager Name Role Phone [facility] Unavailable Unavailable Immunizations Combined list of available immunizations from the Department of Defense and Veterans Affairs facilities. Immunization Series Date Given Administered By Site Reaction Lot Number CVX Code Drug High Scaler Status Comments Source influenza, injectable, quadrivalent- pf 2021 [id number] Seqirus complet ed influenza , injectabl e, quadrival ent-pf 01/12/22 Given Ambulat ory Pharmac y tetanus, diphtheria, acellular pertu is 2021 [id number] sanofi pasteur complet ed tetanus, diphtheri a, acellular pertussis 04/01/21 Given Ambulat ory Pharmac y tetanus toxoid, reduced diphtheria toxoid, and acellular pertu is vaccine, adsorbed 2 2021 [id number] 115 Sanofi Pasteur ([facility]) complet ed tetanus toxoid, reduced diphtheri a toxoid, and acellular pertussis vaccine, adsorbed DoD influenza, injectable, quadrivalent- pf 2020 150 GlaxoSmithKli ne complet ed influenza , injectabl e, quadrival ent-pf 01/19/21 Given Ambulat ory Pharmac y influenza, seasonal, injectable 2020 [id number] 141 GlaxoSmithKli ne complet ed influenza , seasonal, injectabl e 01/19/21 Given Ambulat ory Pharmac y influenza, injectable, quadrivalent, preservative free 2020 KARINA, () Not Given influenza , injectabl e, quadrival ent, preservat chalino free DoD Influenza, seasonal, injectable 0 2020 [id number] 141 SmithKline (SKB) complet ed Influenza , seasonal, injectabl e DoD Influenza, injectable, quadrivalent, preservative free 0 2020 150 SmithKline (SKB) complet ed Influenza , injectabl e, quadrival ent, preservat chalino free DoD COVID Vaccine Pfizer 2020 TRS [address] complet ed COVID Vaccine [facility] 11/12/20 Given Ambulat ory Pharmac y COVID-19, mRNA, LNP-S, PF, 30 mcg/0.3 mL dose 2020 [place] (PFR) Not Given COVID-19, mRNA, LNP-S, PF, 30 mcg/0.3 mL dose DoD SARS-COV-2 (COVID-19) vaccine, mRNA, spike protein, LNP, preservative free, 30 mcg/0.3mL dose 0 2020 Unknown, Provider TRS 208 T[employer]buds (PFR) complet ed SARS-COV- 2 (COVID-19 ) vaccine, mRNA, spike protein, LNP, preservat chalino free, 30 mcg/0.3mL dose DoD COVID Vaccine [facility] 2020 TRS 208 [facility] complet ed COVID Vaccine [facility] 10/22/20 Given Ambulat ory Pharmac y COVID-19, mRNA, LNP-S, PF, 30 mcg/0.3 mL dose 2020 [place] (PFR) Not Given COVID-19, mRNA, LNP-S, PF, 30 mcg/0.3 mL dose DoD SARS-COV-2 (COVID-19) vaccine, mRNA, spike protein, LNP, preservative free, 30 mcg/0.3mL dose 0 2020 Unknown, Provider TRS 208 Med[employer], MEMSIC (PFR) complet ed SARS-COV- 2 (COVID-19 ) vaccine, mRNA, spike protein, LNP, preservat chalino free, 30 mcg/0.3mL dose DoD influenza virus vaccine, inactivated 2019 88 Seqirus complet ed influenza virus vaccine, inactivat ed 12/10/19 Given Ambulat ory Pharmac y Influenza, injectable, MDCK, preservative free, quadrivalent 2019 BOGDASARIAN, () Not Given Influenza , injectabl e, MDCK, preservat chalino free, quadrival ent DoD influenza, injectable, quadrivalent, preservative free 2018 SUAD, () Not Given influenza , injectabl e, quadrival ent, preservat chalino free DoD influenza, injectable, quadrivalent- pf 2017 150 complet ed influenza , injectabl e, quadrival ent-pf 11/15/17 Given Ambulat ory Pharmac y influenza, seasonal, injectable 2017 [id number] 141 Seqirus complet ed influenza , seasonal, injectabl e 11/15/17 Given Ambulat ory Pharmac y Influenza, seasonal, injectable 0 2017 [id number] 141 Seqirus (SEQ) comple t ed Influenza , seasonal, injectabl e DoD influenza, seasonal, injectable 2016 [id number] 141 Seqirus complet ed influenza , seasonal, injectabl e 01/27/17 Given Ambulat ory Pharmac y Influenza, seasonal, injectable, preservative free 2016 CHRISTINE, () Not Given Influenza , seasonal, injectabl e, preservat chalino free DoD Influenza, seasonal, injectable 0 2016 [id number] 141 Seqirus (SEQ) comple t ed Influenza , seasonal, injectabl e DoD influenza, injectable, quadrivalent- pf 2015 150 GlaxoSmithKli ne complet ed influenza , injectabl e, quadrival ent-pf 12/16/15 Given Ambulat ory Pharmac y influenza, seasonal, injectable 2015 [id number] 141 GlaxoSmithKli ne complet ed influenza , seasonal, injectabl e 12/16/15 Given Ambulat ory Pharmac y Influenza, seasonal, injectable 0 2015 [id number] 141 SmithKline (SKB) complet ed Influenza , seasonal, injectabl e DoD influenza, injectable, quadrivalent- pf 2014 150 GlaxoSmithKli ne complet ed influenza , injectabl e, quadrival ent-pf 01/14/15 Given Ambulat ory Pharmac y influenza, seasonal, injectable 2014 [id number] 141 GlaxoSmithKli ne complet ed influenza , seasonal, injectabl e 01/14/15 Given Ambulat ory Pharmac y Influenza, seasonal, injectable 0 2014 [id number] 141 SmithKline (SKB) complet ed Influenza , seasonal, injectabl e DoD influenza, seasonal, injectable 2013 [id number] 141 CSL Behring complet ed influenza , seasonal, injectabl e 12/09/13 Given Ambulat ory Pharmac y Influenza, seasonal, injectable, preservative free 2013 HAKEEM ACOSTA () Not Given Influenza , seasonal, injectabl e, preservat chalino free DoD Influenza, seasonal, injectable 0 2013 [id number] 141 [facility] [employer] ([facility]) complet ed Influenza , seasonal, injectabl e DoD influenza, seasonal, injectable-pf 2012 140 complet ed influenza , seasonal, injectabl e-pf 12/11/12 Given Ambulat ory Pharmac y influenza, seasonal, injectable 2012 [id number] 141 [facility] complet ed influenza , seasonal, injectabl e 12/11/12 Given Ambulat ory Pharmac y Influenza, seasonal, injectable 0 2012 [id number] 141 [facility] [employer] ([facility]) complet ed Influenza , seasonal, injectabl e DoD influenza, seasonal, injectable 2011 141 Novartis Pharmaceutica ls complet ed influenza , seasonal, injectabl e 12/16/11 Given Ambulat ory Pharmac y Influenza, seasonal, injectable 0 2011 141 Novartis HTPtica l Vil[place]. (DEC) complet ed Influenza , seasonal, injectabl e DoD tetanus, diphtheria, acellular pertu is 2011 [id number] 115 sanofi pasteur complet ed tetanus, diphtheri a, acellular pertussis 02/20/11 Given Ambulat ory Pharmac y tetanus toxoid, reduced diphtheria toxoid, and acellular pertu is vaccine, adsorbed 1 2011 [id number] 115 Sanofi Pasteur ([facility]) complet ed tetanus toxoid, reduced diphtheri a toxoid, and acellular pertussis vaccine, adsorbed DoD influenza, seasonal, injectable-pf 2010 TRANSCR IBED 140 Novartis Pharmaceutica ls complet ed influenza , seasonal, injectabl e-pf 12/24/10 Given Ambulat ory Pharmac y influenza, seasonal, injectable 2010 141 Novartis Pharmaceutica ls complet ed influenza , seasonal, injectabl e 12/24/10 Given Ambulat ory Pharmac y Influenza, seasonal, injectable, preservative free 0 2010 140 Novartis Pharmaceutica l Vil[place]. (NOV) complet ed Influenza , seasonal, injectabl e, preservat chalino free DoD Influenza, seasonal, injectable 0 2010 141 Novartis HTPtica l Vilma. (NOV) complet ed Influenza , seasonal, injectabl e DoD influenza virus vaccine, live 2009 [id number] 111 Medimmune Inc comple t ed influenza virus vaccine, live 12/20/09 Given Ambulat ory Pharmac y influenza virus vaccine, live, attenuated, for intranasal use 0 2009 [id number] 111 Med[employer]rain[employer]une[employer] Inc. (MED) complet ed influenza virus vaccine, live, attenuate d, for intranasa l use DoD Novel influenza-H1N 1-09, injectable 2009 [id number] 1 127 Novartis Pharmaceutica ls complet ed Novel influenza -A8L8-62, injectabl e 03/13/09 Given Ambulat ory Pharmac y Novel influenza-H1N 1-09, injectable 1 2009 [id number] 1 127 Novartis Pharmaceutica l [place]. (NOV) complet ed Novel influenza -Q9O7-30, injectabl e DoD typhoid Vi capsular polysaccharid e vac 2008 [id number] 101 sanofi pasteur complet ed typhoid Vi capsular polysacch aride vac 11/27/08 Given Ambulat ory Pharmac y typhoid Vi capsular polysaccharid e vaccine 4 2008 [id number] 101 Sanofi Pasteur ([facility]) complet ed typhoid Vi capsular polysacch aride vaccine DoD influenza virus vaccine, live 2008 [id number] 111 obiwonune Inc comple t ed influenza virus vaccine, live 11/19/08 Given Ambulat ory Pharmac y influenza virus vaccine, live, attenuated, for intranasal use 0 2008 [id number] 111 MedImmune, Inc. (MED) complet ed influenza virus vaccine, live, attenuate d, for intranasa l use DoD influenza virus vaccine,split 2007 AFLLA19 2AA 15 GlaxoSmithKli ne complet ed influenza virus vaccine,s plit 12/29/07 Given Ambulat ory Pharmac y influenza virus vaccine, split virus (incl. purified surface antigen)-reti red CODE 0 2007 AFLLA19 2AA 15 [facility] (SKB) complet ed influenza virus vaccine, split virus (incl. purified surface antigen)- retired CODE DoD influenza virus vaccine,split 2006 AFLLA04 0AA 15 GlaxoSmithKli ne complet ed influenza virus vaccine,s plit 01/26/07 Given Ambulat ory Pharmac y influenza virus vaccine, split virus (incl. purified surface antigen)-reti red CODE 0 2006 AFLLA04 0AA 15 SmithKline (SKB) complet ed influenza virus vaccine, split virus (incl. purified surface antigen)- retired CODE DoD typhoid vaccine, parenteral 2006 [id number] 41 sanofi pasteur complet ed typhoid vaccine, parentera l 10/31/06 Given Ambulat ory Pharmac y typhoid vaccine, parenteral, other than acetone-kille d, dried 3 2006 [id number] 41 Sanofi Pasteur ([facility]) complet ed typhoid vaccine, parentera l, other than acetone-k illed, dried DoD influenza virus vaccine,split 2005 [id number] 15 Unknown complet ed influenza virus vaccine,s plit 01/16/06 Given Ambulat ory Pharmac y influenza virus vaccine, split virus (incl. purified surface antigen)-reti red CODE 0 2005 [id number] 15 Other (OTH) complet ed influenza virus vaccine, split virus (incl. purified surface antigen)- retired CODE DoD influenza virus vaccine,split 2004 [id number] 15 sanofi pasteur complet ed influenza virus vaccine,s plit 01/12/05 Given Ambulat ory Pharmac y influenza virus vaccine, split virus (incl. purified surface antigen)-reti red CODE 0 2004 [id number] 15 Sanofi Pasteur ([facility]) complet ed influenza virus vaccine, split virus (incl. purified surface antigen)- retired CODE DoD typhoid vaccine, parenteral 2004 [id number] 41 sanofi pasteur complet ed typhoid vaccine, parentera l 11/03/04 Given Ambulat ory Pharmac y typhoid vaccine, parenteral, other than acetone-kille d, dried 2 2004 [id number] 41 Sanofi Pasteur ([facility]) complet ed typhoid vaccine, parentera l, other than acetone-k illed, dried DoD tuberculin purified protein derivative 2003 [id number] 96 sanofi pasteur complet ed tuberculi n purified protein derivativ e 08/24/03 Given Ambulat ory Pharmac y anthrax vaccine 2003 [id number] 24 Emergent Biosolutions complet ed anthrax vaccine 08/24/03 Given Ambulat ory Pharmac y anthrax vaccine 5 2003 [id number] 24 Emergent [employer] ([facility]) complet ed anthrax vaccine DoD influenza virus vaccine, whole virus 2002 [id number] 16 Novartis Pharmaceutica ls complet ed influenza virus vaccine, whole virus 12/16/02 Given Ambulat ory Pharmac y influenza virus vaccine, whole virus 0 2002 [id number] 16 PowderJect Pharmaceutica ls (PWJ) complet ed influenza virus vaccine, whole virus DoD anthrax vaccine 2002 [id number] 24 Emergent Biosolutions complet ed anthrax vaccine 11/17/02 Given Ambulat ory Pharmac y influenza virus vaccine, whole virus 2002 [id number] 16 Novartis Pharmaceutica ls complet ed influenza virus vaccine, whole virus 11/17/02 Given Ambulat ory Pharmac y influenza virus vaccine, whole virus 0 2002 [id number] 16 [employer] Pharm[employer] ls (PWJ) complet ed influenza virus vaccine, whole virus DoD anthrax vaccine 4 2002 [id number] 24 [employer] ([facility]) complet ed anthrax vaccine DoD tuberculin purified protein derivative 2002 [id number] 96 sanofi pasteur complet ed tuberculi n purified protein derivativ e 07/18/02 Given Ambulat ory Pharmac y vaccinia (smallpox) vaccine 2002 [id number] 75 MiECO-SAFE [facility] complet ed vaccinia (smallpox ) vaccine 05/10/02 Given Ambulat ory Pharmac y vaccinia (smallpox) vaccine 1 2002 [id number] 75 [facility] ([facility]) complet ed vaccinia (smallpox ) vaccine DoD anthrax vaccine 2002 [id number] 24 [employer] complet ed anthrax vaccine 04/21/02 Given Ambulat ory Pharmac y anthrax vaccine 3 2002 [id number] 24 [employer] ([facility]) complet ed anthrax vaccine DoD anthrax vaccine 2002 [id number] 24 [employer] complet ed anthrax vaccine 04/07/02 Given Ambulat ory Pharmac y anthrax vaccine 2 2002 [id number] 24 [employer] ([facility]) complet ed anthrax vaccine DoD anthrax vaccine 2002 [id number] 24 Emergent [employer] complet ed anthrax vaccine 03/24/02 Given Ambulat ory Pharmac y anthrax vaccine 1 2002 [id number] 24 Emergent BioDef[employer] [facility] ([facility]) complet ed anthrax vaccine DoD hepatitis A adult vaccine 2002 [id number] 52 Merck & Company Inc complet ed hepatitis A adult vaccine 02/21/02 Given Ambulat ory Pharmac y hepatitis A vaccine, adult dosage 4 2002 [id number] 52 Merck (MSD) complet ed hepatitis A vaccine, adult dosage DoD tuberculin purified protein derivative 2001 [id number] 96 sanofi pasteur complet ed tuberculi n purified protein derivativ e 11/22/01 Given Ambulat ory Pharmac y hepatitis B adult vaccine 2001 [id number] 43 Merck & Company Inc complet ed hepatitis B adult vaccine 11/22/01 Given Ambulat ory Pharmac y influenza virus vaccine, whole virus 2001 [id number] 16 sanofi pasteur complet ed influenza virus vaccine, whole virus 11/22/01 Given Ambulat ory Pharmac y typhoid vaccine, parenteral 2001 [id number] 41 sanofi pasteur complet ed typhoid vaccine, parentera l 11/22/01 Given Ambulat ory Pharmac y influenza virus vaccine, whole virus 0 2001 [id number] 16 Sanofi Pasteur ([facility]) complet ed influenza virus vaccine, whole virus DoD typhoid vaccine, parenteral, other than acetone-kille d, dried 1 2001 [id number] 41 Sanofi Pasteur ([facility]) complet ed typhoid vaccine, parentera l, other than acetone-k illed, dried DoD hepatitis B vaccine, adult dosage 3 2001 [id number] 43 Merck (MSD) complet ed hepatitis B vaccine, adult dosage DoD hepatitis B adult vaccine 2001 [id number] 43 Merck & Company Inc complet ed hepatitis B adult vaccine 06/05/01 Given Ambulat ory Pharmac y hepatitis B vaccine, adult dosage 2 2001 [id number] 43 Merck (MSD) complet ed hepatitis B vaccine, adult dosage DoD hepatitis B adult vaccine 2001 [id number] 43 Merck & Company Inc complet ed hepatitis B adult vaccine 04/24/01 Given Ambulat ory Pharmac y hepatitis A adult vaccine 2001 [id number] 52 Merck & Company Inc complet ed hepatitis A adult vaccine 04/24/01 Given Ambulat ory Pharmac y hepatitis B vaccine, adult dosage 1 2001 [id number] 43 Merck (MSD) complet ed hepatitis B vaccine, adult dosage DoD hepatitis A vaccine, adult dosage 3 2001 [id number] 52 Merck (MSD) complet ed hepatitis A vaccine, adult dosage DoD influenza virus vaccine, whole virus 2000 [id number] 16 sanofi pasteur complet ed influenza virus vaccine, whole virus 12/31/00 Given Ambulat ory Pharmac y hepatitis A adult vaccine 2000 [id number] 52 Merck & Company Inc complet ed hepatitis A adult vaccine 12/31/00 Given Ambulat ory Pharmac y influenza virus vaccine, whole virus 0 2000 [id number] 16 Sanofi Pasteur ([facility]) complet ed influenza virus vaccine, whole virus DoD hepatitis A vaccine, adult dosage 2 2000 [id number] 52 Merck (MSD) complet ed hepatitis A vaccine, adult dosage DoD tuberculin purified protein derivative 2000 [id number] 96 sanofi pasteur complet ed tuberculi n purified protein derivativ e 12/19/00 Given Ambulat ory Pharmac y yellow fever vaccine 2000 [id number] 37 sanofi pasteur complet ed yellow fever vaccine 12/19/00 Given Ambulat ory Pharmac y tetanus-dipht h toxoids (Td) adult/adol 2000 [id number] 09 sanofi pasteur complet ed tetanus-d iphth toxoids (Td) adult/ado l 12/19/00 Given Ambulat ory Pharmac y tetanus and diphtheria toxoids, adsorbed, preservative free, for adult use (2 Lf of tetanus toxoid and 2 Lf of diphtheria toxoid) 1 2000 [id number] 09 Sanofi Pasteur ([facility]) complet ed tetanus and diphtheri a toxoids, adsorbed, preservat chalino free, for adult use (2 Lf of tetanus toxoid and 2 Lf of diphtheri a toxoid) DoD yellow fever vaccine 1 2000 [id number] 37 Sanofi Pasteur ([facility]) complet ed yellow fever vaccine DoD hepatitis A adult vaccine 2000 [id number] 52 Merck & Company Inc complet ed hepatitis A adult vaccine 06/17/00 Given Ambulat ory Pharmac y hepatitis A vaccine, adult dosage 1 2000 [id number] 52 Merck (MSD) complet ed hepatitis A vaccine, adult dosage DoD tuberculin purified protein derivative 2000 [id number] 96 [facility] complet ed tuberculi n purified protein derivativ e 06/10/00 Given Ambulat ory Pharmac y meningococcal polysaccharid e (MPSV4) 2000 [id number] 32 [facility] complet ed meningoco ccal polysacch aride (MPSV4) 06/10/00 Given Ambulat ory Pharmac y influenza virus vaccine, whole virus 2000 [id number] 16 [employer] complet ed influenza virus vaccine, whole virus 06/10/00 Given Ambulat ory Pharmac y poliovirus vaccine, inactivated 2000 [id number] 10 sanofi pasteur complet ed polioviru s vaccine, inactivat ed 06/10/00 Given Ambulat ory Pharmac y poliovirus vaccine, inactivated 1 2000 [id number] 10 Sanofi Pasteur ([facility]) complet ed polioviru s vaccine, inactivat ed DoD influenza virus vaccine, whole virus 0 2000 [id number] 16 [facility] ([facility]) complet ed influenza virus vaccine, whole virus DoD meningococcal polysaccharid e vaccine (MPSV4) 1 2000 [id number] 32 [facility] (CON) complet ed meningoco ccal polysacch aride vaccine (MPSV4) DoD Results Combined list of recent chemistry, hematology and other laboratory results from Department of Defense and Veterans Affairs, ranging from 15 months to all on record, depending upon the facility. Order Name Results Value Reference Range Date Interpretation Specimen Comments Source Infectio us Disease HIV-1/O/2 Non-Reac tive 1 (07/19/22 11:00 AM) 07/19 N Interpretiv e Data: INTERPRETAT ION: This method is a screening procedure for the detection of HIV p24 Antigen and Antibodies to HIV-1, including Group O, and/or HIV-2. NON-REACTIV E: HIV-1 antigen and HIV-1 / HIV-2 antibodies were not detected. No laboratory evidence of HIV infection. A negative test result does not exclude the possibility of exposure to or infection with HIV. HIV antibodies and/or p24 antigen may be undetectabl e in some stages of the infection and in some clinical conditions. If acute HIV infection is suspected, consider submitting another specimen to a reference laboratory for HIV-1 RNA. SCREEN REACTIVE - CONFIRMATIO N TO FOLLOW: Possible presence of HIV-1antibo dies, HIV-2 antibodies and/or HIV-1 p24 antigen. Specimen will reflex to the confirmatio n testing that fulfills the Center for Disease Control and Prevention' s HIV diagnostic algorithm. Refer to [facility] Lab Guide for additional information : [email or web address] x Testing performed by Lucia fuchs. [facility] [address] Sendouts Repository Sample Received (07/19/22 11:00 AM) 07/19 N [facility] Vital Signs Combined list of inpatient and outpatient Vital Signs from Department of Recite Me and Veterans [facility], ranging from 12 months to all on record, depending upon the facility. Vital Sign Value Date Comments Source No data available for this section Ambulatory Pharmacy Encounters Combined list of: 1) Encounters from Department of Veterans Affairs facilities going back up to thelast 18 months. 2) Encounters from the Department of Recite Me facilities going back up to 280 months. Location Location Details Encounter Type Encounter Number Reason For Visit Attending Provider ADM Date DC Date Status Disposition Source [facility]) TELE CONSULT [id number] Notes Entered by: MICHAEL MADDOX 07 Oct 2021 1318 ------- ------- ------- ------- -- OTHER- Convale scent leave ANA SAMPSON 10/07 [facility] Medical [facility] Team [facility]) [facility]) OUTPATIENT [id number] MFR Request ANA SAMPSON 10/07 Released w/o Limitations [facility] Team [facility]) [facility]) TELE CONSULT [id number] Notes Entered by: JOVANNI HERNANDEZ 21 Oct 2021 1624 ------- ------- ------- ------- -- provide r request WANDA LAINEZ 10/21 Other Not Elsewhere Classified [facility] Medical [facility] Team A) [address] [place] [address]([facility] Case Managemen t) TELE CONSULT [id number] Notes Entered by: JANIS MARCUS 23 Oct 2021 0920 ------- ------- ------- ------- -- JANIS HEWITT 10/23 Other Not Elsewhere Classified [facility] Case Managem ent) Procedures Combined list of: 1) Procedures from Department of Veterans Affairs facilities going back up to thelast 18 months, not all [place] non-surgical procedures are included; 2) All procedures from the Department of Defense facilities. Procedure Procedure Type Code Date Perfomer Comments Sour e No data available for this section [facility] BRIEF EMOTIONAL/BEHAVIO RAL ASSESSMENT (EG, DEPRESSION INVENTORY, ATTENTION-DEFICIT /HYPERACTIVITY DISORDER [ADHD] SCALE), WITH SCORING AND DOCUMENTATION, PER STANDARDIZED INSTRUMENT 2 [facility] CASE MANAGEMENT, EACH 15 MINUTES 2 [facility] CASE MANAGEMENT, EACH 15 MINUTES 2 [facility] WAIVER SERVICES; NOT OTHERWISE SPECIFIED (NOS) 2 [facility] Waiver services; not otherwise specified (NOS) ANA SAMPSON [facility] Case Management, each 15 minutes JANIS GARCÍA [facility] Psychometric Emotional / Behavioral A e ment Psychometric Emotional / Behavioral Assessment [id number] SOHAN HICKMAN [facility] Social History Combined list of available smoking, tobacco, and other social history from Department of Defense and Veterans Affairs facilities. Social History Type Response Date Comment Sourlaurent e Male 02/25/2022 Ambulatory Pha rmacy Sexual Orientation [facility]acy Gender identity [facility] This section is an empty soc ial history section. DoD Assessment and Plan Combined list of future care activities from Department of Defense and Veterans Affairs facilities (e.g., assessment and plan notes, appointments, orders, and referrals). Additional future care activities may be listed in the Plan of Care section. Result Assessment and Plan Date Source Assessment and Plan Extracted from:Title : [facility] Therapist OP Initial Visit Note Author: COLUMBA MALCOLM Date: 08/05/22 1.?Post-traumatic stress disorder, unspecified Prognosis: Fair The member has received medications and individual therapy and reported they have been effective in managing, but not eliminating, his symptoms.? ? He is recommended to continue both therapy and medication management.? His current frequency of quarterly medication management appointments and therapy every other week is a good baseline. ? In future, he may benefit from completion of an evidence-based psychotherapy protocol for PTSD.? Evidence-based protocols include? include psychotropic medications and trauma-based treatments such as Cognitive Processing Therapy, Prolonged Exposure or Eye Movement Desensitization and Reprocessing Therapy.? He may also benefit from a higher level of care, such as an intensive outpatient, partial hospitalization or residential treatment program specifically for PTSD.? The likelihood of emergency hospitalization is considered low. ? ? ? 02/06/2024 Ambulatory Pharmacy Functional Status Combined list of recent functional and cognitive assessments recorded at [facility] of Defense and Veterans Affairs (VA).VA Functional [place] Measurement (FIM) Scale: 1 = Total Assistance (Subject = 0% +), 2 = Maximal Assistance (Subject = 25% +), 3 = Moderate Assistance (Subject = 50% +), 4 = Minimal Assistance (Subject = 75% +), 5 = Supervision, 6 = Modified [place] (Device), 7 = Complete [place] (Timely, Safely). Assessment Date/Time Source Assessment Type Assessment Skill Assessment Score Assessment Details FUNCTIONAL 3Home Dietary Supplements Captured No
--- OUTSIDE RECORDS SUMMARY | 2024-02-06 15:01 | XMS_ITS | Patient Health Record ---
Author Organization [facility] [place] Address [address] [place] [address] Care Team Providers Care Bread Racker Name Role Phone Tolu Claros Primary Care Provider Unav Garrison Ontiveros Unavailable [phone] Allergies No Known Allergies Reason For Referral No Information Medications Medication SIG (Take, Route, Frequency, Duration) Notes Start Date End Date Status Physical Therapy . . . 2-3x/week and us e deep massage and US Active Night Splint AFO - L1930 as directed Active Custom Orthotics as directed A ctive Escitalopram Oxalate 5 MG 1 tablet Orall y Once a day for 30 day(s) Active buPROPion HCl ER (SR) 150 MG 1 tablet in the morning Orally Once a day for 30 day(s) Active Wellbutrin Active traZODone HCl 100 MG 1 tablet at bedtime Orally Once a day for 30 day(s) Active Lisinopril 40 MG 1 tablet Orally Once a day for 30 day(s) Active Immunizations Vaccine Route Administration Date Status Comme nts COVID-19 Pfizer BioNTech Vaccine Unknown 11/12/2020 Adm inistered 1st 10/22/20 Social History Tobacco Use: Social History Observation Description Date Details (start date - stop date) Former Smoker NA - NA Tobacco Use/Smoking Question Answer Notes Are you a: former smoker Additional Findings: Tobacco Non-User Current no n-smoker Alcohol Screen Question Answer Notes Did you have a drink contain ing alcohol in the past year? Yes How often did you have a dri nk containing alcohol in the past year? Monthly or less (1 point) Points 1 Interpretation Negative Tobacco use other than smoking: Question Answer Notes Are you an other tobacco user? No Plan Of Treatment Pending Test Test Name Order Date X ray : Foot, left 3V 09/30/2021 X ray : Foot, right 3V 09/30/2021 Insurance Providers Payer Name Payer Address Payer Phone Subscriber Number Group Number Insured Name Patient Relationship to Insured Coverage Start Date Coverage End Date [facility] [address] [place] [address] [id number] Logan Saravia Self - patient is the insured 4 Medical (General) History Medical History History ICD Code Anxiety Back,Hip,and Knee pain Depression Headaches/Migraines High blood pressure Measles Chicken pox Carpal tunnel Arthritis Sleep apnea Bone spur Surgical History Surgery Date(Month/Year) appendectomy hernia Jaime carpal tunnel surgery 2x 08/2021,10/03 21
== END 2024-02-06 15:57 | disposition home or self-care (01) ==
PROVIDERS: PCP Nurse Practitioner Family; Visit Provider Nurse Practitioner Family
DX: I10 Essential (primary) hypertension (principal); Z12.5 Encounter for screening for malignant neoplasm of prostate

== ENCOUNTER → 2024-02-06 14:59 | Outpatient (BNVA) | payer OTHER, SELFPAY | PROVIDERS: PCP Nurse Practitioner Family; Visit Provider Nurse Practitioner Family | DX: I10 Essential (primary) hypertension (principal) | CPT/HCPCS: 96127 ==

== ENCOUNTER 2024-11-27 10:19 | Outpatient (AMB) | payer OTHER, SELFPAY ==
[2024-11-27 10:26] VITALS: BP 138/92; PULSE 74; O2SAT 96; BMI 35.2
--- NOTE | 2024-11-27 10:26 | A.OFFVIS_ITS ---
Vital Signs 11/27/24 10:26 Height 5 ft 11 in Weight 252 lb 6 oz BMI 35.2 BP 138/92 H Blood Pressure Location Rt brachial Position Sitting Pulse 74 Pulse Source Pulse Oximeter Pulse Oximetry (%) 96 Oxygen Delivery Method Room Air Intake Visit Reasons: follow up Intake Note: Patient presents follow up JAQUELINE. Compliance in chart(90/90days, >=4hrs-86%, Average Usage-5hr 40min, Pressure-13cm, Med Leaks-65.7, AHI-0.9). Patient states [employer] order something always missing. issues with mask leakage. Accompanied by: Self / Same As Patient Allergies No Known Allergies Allergy (Verified 11/27/24 10:29) HPI Comments Details: 48 y/o male patient presents for follow up of JAQUELINE on CPAP therapy. CPAP compliance report (08/2024-11/2024) reviewed with the patient. Avg use is 5 hours and 40min. and 90/90 days >4 hours 86%. Pt. is on CPAP [id number]. Leaks are 65.7cmH20 AHI is 0.9cmH20. He washes his mask, rinses hoses, changes filters and fills reservoir with water. Pt would like to switch companies due to items missing with every single shipment he receives from [employer]. He will f/u with his sleep company and insurance as he is paying for supplies out of pocket. He notices the difference is drastic improvements with levels of energy and now he is more productive through the day. He no longer drives however his chronic fatigue and brain fog has improved. He wakes up refreshed when he uses the CPAP. 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 His mask leaks and we discussed using liners for the cpap mask with chin straps. He likes the pressures so he does not want to adjust the pressures, and notices even when he shaves his facial hair the mask will still leak a lot, however he thinks the full face mask is the best fit for his face. He has anxiety, and it is being managed with buproprion, he automatically responds to trauma, is hyper-vigilant to noises and sounds. 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 [facility] Medical History Depression Numbness and tingling in both hands Right knee pain Snoring Loose body in elbow joint Foot pain Elevated bilirubin Elevated liver enzymes Elevated hemoglobin Nerve root compression Screening for colon cancer Screening for prostate cancer History of splenomegaly Plantar fascial fibromatosis HTN (hypertension) Anxiety Sleep disorder, unspecified Sleep apnea Surgical History History of bilateral carpal tunnel release Hx of carpal tunnel repair History of hernia repair Social History Housing: House Alcohol intake: current Patient Tobacco Use Status: Former Tobacco user Years Smoked: pt smokes off and on last time about a month ago e-Cigarette/Vaping Use: Never Used Second Hand Smoke Exposure: Yes service: Yes Current occupational status: employed 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 [employer] Current occupational exposures/hazards: Yes Cognitive needs: No Hearing needs: No Vision needs: No Review of Systems Neuro Reports Abnormal speech present Physical Exam Vital Signs: Last Vital Signs Pulse 74 11/27/24 10:26 BP 138/92 H 11/27/24 10:26 Pulse Ox 96 11/27/24 10:26 Oxygen Delivery Method Room Air 11/27/24 10:26 BMI result Body Mass Index 35.2 Const General: cooperative, healthy appearing and no acute distress Nutritional Appearance: average body habitus and obese Orientation/consciousness: patient oriented x3 Eyes Pupils: Equal, round and reactive pupils present Neck Neck: Yes full ROM Resp Effort & Inspection: normal respiratory effort and able to speak in complete sentences Neuro General: patient oriented x3 and moves all extremities Cranial nerves: Yes CN's II-XII intact bilaterally, Yes Facial sensation intact/muscles of mastication intact, Yes Equal, round and reactive pupils present, Yes Normal accommodation reflex present, Yes Bilaterally intact EOM present, Yes Nystagmus not present, Yes Normal facial strength present, Yes Midline tongue present, Yes Symmetric palate elevation present, Yes Ability to bilaterally rotate head present and Yes Ability to bilaterally elevate shoulders present Cognition (Neuro): normal cognition Speech: Abnormal speech present Gait exam (Neuro): Normal gait present Motor exam (neuro): 5/5 motor strength present throughout and Normal motor muscle tone present throughout Psych Appearance: grossly normal Thought process: Normal thought process present Thought content: Normal thought content present Results Reviewed Results Reviewed: CPAP compliance report (08/2024-11/2024) reviewed with the patient. Avg use is 5 hours and 40min. and 90/90 days >4 hours 86%. Pt. is on CPAP [id number]. Leaks are 65.7cmH20 AHI is 0.9cmH20. Assessment & Plan Assessment & Plan (1) Anxiety: Code(s): F41.9 - Anxiety disorder, unspecified Category: Medical (2) Snoring: Code(s): R06.83 - Snoring Category: Medical (3) Severe obstructive sleep apnea: Comment: HST (04/22/20): AHI 78.4/hr, O2 farideh 67%. CPAP supplier: [facility], will change him to [facility] Code(s): G47.33 - Obstructive sleep apnea (adult) (pediatric) Category: Medical Plan JAQUELINE on Cpap therapy and compliant. Patient is advised to undergo Mask fitting with [facility] and stop purchasing supplies from suppliers until a good mask has been identified and he has exhausted all possible solutions for an appropriate mask, that doesn't leak. Mood monitor and continue Buproprion per pcp. Sleep Hygiene provided, limit fluids 4 hours prior to bed. Limit caffeine to one beverage a day. Wash mask daily, change filters, fill reservoir with distilled water, adjust humidification as needed. BMI is 35, encouraged patient to engage in continuous exercise for weight reduction and monitor caloric intake. Former / current smoker, Smoking cessation is available. 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 DASH Diet for Hypertension, per [place] [employer] #1 modifiable risk factor to prevent heart attacks is blood pressure control. Refer to: www.https//mydash.diet Mediterranean Diet- Cardiovascular Risk reduction, weight loss, and control Type 2 diabetes mellitus. BP is elevated today. Follow up in 6 months, please call or message us on the portal with concerns. Coding Level of Care Code Est Pt Level 4 (66264) Diagnoses Anxiety F41.9 Snoring R06.83 Severe obstructive sleep apnea G47.33
--- OUTSIDE RECORDS SUMMARY | 2024-11-27 12:09 | XMS_ITS | Patient Health Record ---
Author Organization [facility] Address [address] [place] [address] Care Team Providers Care Rn Intensive Care Unit Name Role Phone Tolu Claros Primary Care Provider Unav ailable Chichi Garrison Unavailable [phone] Allergies No Known Allergies Reason For Referral No Information Medications Medication SIG (Take, Route, Frequency, Duration) Notes Start Date End Date Status Physical Therapy . . . 2-3x/week and us e deep massage and US Active Night Splint AFO - L1930 as directed Active Custom Orthotics as directed A ctive Escitalopram Oxalate 5 MG 1 tablet Orall y Once a day; Duration: 30 day(s) Active buPROPion HCl ER (SR) 150 MG 1 tablet in the morning Orally Once a day; Duration: 30 day(s) Active Wellbutrin Active traZODone HCl 100 MG 1 tablet at bedtime Orally Once a day; Duration: 30 day(s) Active Lisinopril 40 MG 1 tablet Orally Once a day; Duration: 30 day(s) Active Immunizations Vaccine Route Administration [...] Insured Coverage Start Date Coverage End Date [facility] [address] [place] [id number] Logan Saravia Self - patient is the insured 4 Medical (General) History Medical History History ICD Code Anxiety Back,Hip,and Knee pain Depression Headaches/Migraines High blood pressure Measles Chicken pox Carpal tunnel Arthritis Sleep apnea Bone spur Surgical History Surgery Date(Month/Year) appendectomy hernia Jaime carpal tunnel surgery 2x 08/2021,10/03 21
== END 2024-11-27 11:08 | disposition home or self-care (01) ==
LOC: HO.HSMS 10:20
PROVIDERS: PCP Nurse Practitioner Family; Visit Provider Physician Assistant Medical
DX: F41.9 Anxiety disorder, unspecified (principal); R06.83 Snoring; G47.33 Obstructive sleep apnea (adult) (pediatric)
CPT/HCPCS: 99214

== ENCOUNTER 2024-12-14 14:36 | Outpatient (AMB) | payer OTHER, SELFPAY ==
--- NOTE | 2024-12-14 14:39 | A.OFFVIS_ITS ---
Vital Signs 12/14/24 14:40 Height 5 ft 11 in Weight 252 lb BMI 35.1 BP 156/82 H Blood Pressure Location Rt brachial Position Sitting Pulse 74 Pulse Source Pulse Oximeter Pulse Oximetry (%) 98 Oxygen Delivery Method Room Air Intake Visit Reasons: Colonoscopy Screening Intake Note: New pt for initial colo screening. CC; Pt denies any GI sx or concerns at this time. No pertinent surgical or FMHx. [place] Upholsterer Required: No Accompanied by: Self / Same As Patient Allergies No Known Allergies Allergy (Verified 12/14/24 14:39) HPI HPI Colonoscopy Screening: Details: 49 year old? male with past medical history JAQUELINE, HTN, PTSD, is here today for pre colonoscopy screening.? Patient was sent to us by his/her PCP.? This is his first colonoscopy screening.? Patient denies any gastrointestinal symptoms in the past or at present.? Denies any personal or family history of gastrointestinal disease, colon polyps, or CRC.? Denies history of difficulty with sedation or anesthesia in the past.? History of sleep apnea, uses CPAP every night..? Denies any history of cardiac, renal, pulmonary, or hepatic disease.?? No history of infectious? diseases like hepatitis A, B, C, HIV or tuberculosis.? Patient is not on any anticoagulation PFSH Medical History Depression Numbness and tingling in both hands Right knee pain Snoring Loose body in elbow joint Foot pain Elevated bilirubin Elevated liver enzymes Elevated hemoglobin Nerve root compression Screening for colon cancer Screening for prostate cancer History of splenomegaly Plantar fascial fibromatosis HTN (hypertension) Anxiety Sleep disorder, unspecified Sleep apnea Surgical History History of bilateral carpal tunnel release Hx of carpal tunnel repair History of hernia repair Social History Housing: House Alcohol intake: current Patient Tobacco Use Status: Former Tobacco user Years Smoked: pt smokes off and on last time about a month ago e-Cigarette/Vaping Use: Never Used Second Hand Smoke Exposure: Yes service: Yes Current occupational status: employed 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 [employer] Current occupational exposures/hazards: Yes Cognitive needs: No Hearing needs: No Vision needs: No Review of Systems Const Denies weight gain and Denies weight loss ENT Reports no additional complaints, Denies dysphagia and Denies odynophagia Card Reports no additional complaints Resp Reports no additional complaints GI Denies abdominal pain, Denies belching, Denies melena, Denies bloating, Denies change in bowel habits, Denies dysphagia, Denies excessive flatus, Denies dyspepsia, Denies heartburn, Denies diarrhea, Denies loose stools, Denies nausea, Denies odynophagia and Denies vomiting Reports no additional complaints Musc Reports no additional complaints Neuro Reports no additional complaints Psych Reports no additional complaints Endo Reports no additional complaints Physical Exam Vital Signs: Last Vital Signs Pulse 74 12/14/24 14:40 BP 156/82 H 12/14/24 14:40 Pulse Ox 98 12/14/24 14:40 Oxygen Delivery Method Room Air 12/14/24 14:40 BMI result Body Mass Index 35.1 Const General: healthy appearing and no acute distress Nutritional Appearance: well nourished and obese Orientation/consciousness: patient oriented x3 Resp Effort & Inspection: normal respiratory effort, able to speak in complete sentences, no tracheal deviation and symmetric chest movement Auscultation: clear to auscultation bilaterally Cardio Rate: regular rate GI Inspection: Yes normal to inspection, No distended and Yes obesity Palpation (GI): Soft to palpation, not firm, nontender and No hepatosplenomegaly present Auscultation: normal bowel sounds General: Yes no CVA tenderness Back/Spine/Pelvis Back: no CVA tenderness Skin General skin exam: elasticity normal, turgor normal and dry skin Neuro General: patient oriented x3 Psych Appearance: grossly normal Mental Status: mental status grossly normal Assessment & Plan Assessment & Plan (1) Screen for colon cancer: Code(s): Z12.11 - Encounter for screening for malignant neoplasm of colon Plan Patient denies any GI, cardiac or respiratory symptoms.? Denies any issues with anesthesia in the past.? History of sleep apnea? No history infectious diseases in the past or present.? Not on any anticoagulation therapy.? No family or personal history of colon cancer or polyps.? Patient denies melena, hematochezia, unintentional weight loss or ribbon like stools.? Discussed at length the pre-procedure,? prep, diet & medications as well as what to expect prior, during and after the procedure.?? Stressed the importance of good bowel prep.? Recommended the use of Vaseline or Calmoseptine OTC & baby wipes with bowel movements to promote comfort.? ?Patient verbalizes understanding and agrees to plan of care.? She was given the opportunity to ask questions and all questions answered.? We will see her after the procedure.? Orders: Orders US abdomen comp w elastography Today R79.89 - Other specified abnormal findings of blood chemistry Liver Panel Today R74.01 - Elevation of levels of liver transaminase levels Referrals GI Procedure Notification Z12.11 - Encounter for screening for malignant neoplasm of colon Medications: New bisacodyl (Dulcolax (bisacodyl)) take 4 tabs at noon the day before your colonoscopy 20 mg (4 x 5 mg) PO ONCE 4 tabs 0RF constipation 1 day Z12.11 - Encounter for screening for malignant neoplasm of colon polyethylene glycol 3350 (Miralax) As directed by gastroenterology department at [facility] 238 grams PO ONCE 238 grams 0RF Z12.11 - Encounter for screening for malignant neoplasm of colon Coding Level of Care Code New Pt Level 3 (73067) Diagnoses Screen for colon cancer Z12.11 Time Spent (min) 40 Comment 30 minutes spent with patient and additional 10 minutes spent reviewing his records
[2024-12-14 14:40] VITALS: BP 156/82; PULSE 74; O2SAT 98; BMI 35.1
--- OUTSIDE RECORDS SUMMARY | 2024-12-14 15:08 | XMS_ITS | Patient Health Record ---
Author Organization [facility] Address [address] [place] [address] Care Team Providers Care Gold Assayer Name Role Phone Tolu Claros Primary Care Provider Unav ailable Chichi Garrison Unavailable [phone] Allergies No Known Allergies Reason For Referral [...] Insured Coverage Start Date Coverage End Date [facility] [address] [place] [address] [id number] Logan Saravia Self - patient is the insured 4 Medical (General) History Medical History History ICD Code Anxiety Back,Hip,and Knee pain Depression Headaches/Migraines High blood pressure Measles Chicken pox Carpal tunnel Arthritis Sleep apnea Bone spur Surgical History Surgery Date(Month/Year) appendectomy hernia Jaime carpal tunnel surgery 2x 08/2021,10/03 21
== END 2024-12-14 15:46 | disposition home or self-care (01) ==
LOC: HO.HGI 14:37
PROVIDERS: PCP Nurse Practitioner Family; Visit Provider Nurse Practitioner Family
DX: Z01.818 Encounter for other preprocedural examination (principal); Z12.11 Encounter for screening for malignant neoplasm of colon
CPT/HCPCS: S0285